=== PATIENT | male | born 1955 | race Caucasian/White ===

== ENCOUNTER 2024-06-20 11:31 | Outpatient (REF) | payer MEDICARE, SELFPAY | END 2024-08-30 16:45 | disposition home or self-care (01) | LOC: ANHLAB 11:31 | PROVIDERS: PCP Internal Medicine; Visit Provider Plastic Surgery | DX: C43.39 Malignant melanoma of other parts of face (principal) | CPT/HCPCS: 88305 ==

== ENCOUNTER → 2025-04-11 16:10 | Outpatient (REF) | payer MEDICARE, SELFPAY ==
--- NOTE | 2025-04-11 16:10 | S_PTH ---
PATIENT: HEBERT TUCKER LOC: [facility] U#:[id number] AGE/SX: 70/M ROOM: RE04/11/[address]: Toni Montalvo MD : 1955 BED: DIS: SPEC #: [id number] RECD: 04/12/25 06:55 STATUS: AYAH REEugene #: [id number] MICHELLE: 04/11/25 16:[address]: Toni Montalvo DEPT: [facility] Surgical RECD BY: Cassy Blue ENTERED: 04/12/25 06:56 SP TYPE: Surgical OTHR DR: Yenifer MichaelMD Tissues: A - Melanoma B - Skin Procedures: Hematoxylin and Eosin Stain Dixon/Jeimy A Gross and Microscopic Level 4 SOX 10
--- OUTSIDE RECORDS SUMMARY | 2025-04-11 16:12 | XMS_ITS | Encounter Summary ---
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) Procedures TEMPUS xM NEXT - Miscellaneous Test Rome Ybarra MD [address] [facility] [address] [place] [address] Phone: tel: fax: Referral ID Status Reason Start Date Expiration Date V isits Requested Visits Authorized [id number] Pending Review 03/29/2025 04/28/2026 1 1 Reason for Visit * Oncology (Routine) - Authorized Specialty Diagnoses / Procedures Referred By Alisia zamora Referred To Contact Oncology Diagnoses Malignant melanoma of neck (HCC) Benjy Barron MD [address] [place] [address] Phone: tel: fax: Rome Ybarra MD [address] [facility] [address] [place] [address] Phone: tel: fax: Referral ID Status Reason Start Date Expiration Date Visits Requested Visits Authorized [id number] Authorized Specialty Services Required 4 02/02/2026 99 99 Encounter Details Date Type Department Care Team (Late st Contact Info) Description 04/10/2025 12:20 PM CDT Office Visit [facility] [address] [facility] [address] [place] [id number] Rome Ybarra MD [address] [facility] [address] [place] [address] 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 Never 12/01/2024 Q2: How many drinks containi ng alcohol do you have on a typical day when you are drinking? Patient does not drink Q3: How often do you have si x or more drinks on one occasion? Never 12/01/2024 Personal Safety Answer Date Recorded Have you ever been in or are you currently in a harmful physical or emotional relationship or is someone making you feel afraid or unsafe? 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 Gender Identity Not on file Sexual Orientation Not on file documented as of this encounter Last Filed Vital Signs Vital Sign Reading Time Taken Comments Blood Pressure 123/71 04/10/2025 12:11 PM CDT Pulse 110 04/10/2025 12:11 PM CDT Temperature 36.2 C (97.2 F) 04/10/2025 12:11 PM CDT Respiratory Rate 18 04/10/2025 12:11 PM CDT Oxygen Saturation 97% 04/10/2025 12:11 PM CDT Inhaled Oxygen Concentration - - Weight 120.7 kg (266 lb) 04/10/2025 12:11 PM CDT Height - - Body Mass Index 40.45 01/16/2025 8:17 AM CDT documented in this encounter Progress Notes * Garret Barrios RN STAFFING - 04/10/2025 12:20 PM CDT Images from the original note were not included. MEDICAL ONCOLOGY OUTPATIENT ROV NOTE Brandon Robertson : 1955 DATE OF VISIT: 04/10/25 PATIENT NAME: Brandon Robertson DATE OF : 1955 DATE OF SERVICE: 08/01/24 REFERRING PHYSICIAN: DR. Ybarra REFERRING PHYSICIAN: Benjy Barron MD PRIMARY CARE PROVIDER: Russ Patton MD ONCOLOGIC SURGEON: Benjy Barron MD COUNT TEAM MEMBER: RON Quinteros OCCULOPLASTIC SURGEON: Dexter Glaser MD LOCAL PLASTIC SURGEON ([place], [place]): Toni Montalvo MD REASON FOR REFERRAL: Melanoma of the posterior neck AND melanoma of the right inferior forehead DIAGNOSIS / COMPLETION / TREATMENT / CHIEF COMPLAINT: 05/29/24: Biopsy of posterior neck lesion and right inferior forehead lesion; pathology reported [id number] to posterior neck site with positive deep and peripheral margins; pathology reported ulcerated malignant melanoma with Breslow depth of 3.2 mm and mitotic rate of 6/mm2 to the right inferior forehead site. 06/20/24: In-office resection of right inferior forehead melanoma; pathology reported residual melanoma with Breslow depth of 0.9 mm and positive margins (lentigo maligna, +ulceration, Ronnie Level II, 1 mitosis/mm2, -microsatellites, non-brisk lymphocytes, -tumor regression, +margins [peripheral margin positive, deep margin negative]). 07/29/24: PET reported mild to moderately hypermetabolic right preauricular nodule measuring 5 mm may represent a genevieve metastasis. Recommend correlation with tissue sampling; reported bilateral sub-6 mm pulmonary nodules below the resolution of PET are indeterminate, although melanoma metastasis is felt less likely given the lack of any FDG uptake in the 5 mm nodule. Recommend continued attention on follow-up. CT Head/Neck reported no cervical lymphadenopathy. No definite correlate for the posterior neck reported melanoma; reported skin defect over the right supraorbital forehead with fat stranding in this region may represent post treatment changes. Residual small lesion may appear similar. No underlying osseous erosion. This is best seen in the same day dedicated CT head; reported 1 .8 cm right thyroid nodule. This can be better assessed with dedicated thyroid ultrasound if clinically appropriate. IMMUNOTHERAPY: Pembrolizumab (08/15/24 - Ongoing) HISTORY OF PRESENT ILLNESS: To briefly review, Brandon Robertosn is a 69-year-old male with a recently diagnosed melanoma of the forehead and posterior neck. He underwent a shave biopsy of the right forehead lesion and posterior neck by his local senior data integration developer on May 29, 2024; pathology of the inferior right forehead lesion reported MIS, lentigo melanoma type, with positive deep and peripheral margins. Pathology of the poste rior neck lesion reported an ulcerated melanoma with Breslow depth of 3.2 mm and mitotic rate of 6/mm2. Excision of the right inferior forehead was performed in the office of Dr. Toni Montalvo (plastic surgeon) revealing residual melanoma with Breslow depth of 0.9 mm and positive margins (lentigo maligna, +ulceration, Ronnie Level II, 1 mitosis/mm2, -microsatellites, non-brisk lymphocytes, -tumor regression, +margins). Mr. Carrillo's medical history is significant for CAD, cardiac stent placement x 2, and DM. He presents today for consultation. Denies any history of autoimmune diseases. INTERVAL HISTORY: Returns today for ongoing assessment and treatment. Plan to proceed with immunotherapy today as scheduled.Pembrolizumab (08/15/24 - Ongoing) Denied any issues. PAST MEDICAL HISTORY: Past Medical History: Diagnosis Date Cataract Diabetes mellitus (HCC) Hypertension Skin cancer Sleep apnea 6yrs ago Past Surgical History: Procedure Laterality Date APPENDECTOMY 1970 CARDIAC STENT PLACEMENT X2. 2018, 2019 COLONOSCOPY 05/2024 PAROTIDECTOMY 10/2024 MEDICATIONS: Current Outpatient Medications: aspirin 81 mg enteric coated tablet atorvastatin (LIPITOR) 40 mg tablet bacitracin-polymyxin B (bacitracin zinc-polymyxin B) ointment blood glucose diagnostic (glucose blood) strip cholecalciferol (Vitamin D3) 1,000 unit capsule glipiZIDE XL (GLUCOTROL XL) 5 mg 24 hr tablet ibuprofen 200 mg tab/cap ketorolac (ACULAR) 0.5 % ophthalmic solution lisinopriL (PRINIVIL,ZESTRIL) 20 mg tablet metFORMIN (GLUCOPHAGE) 1,000 mg tablet OneTouch Delica Plus Lancet 30 gauge misc oxyCODONE (ROXICODONE) 5 mg immediate release tablet oxyCODONE (ROXICODONE) 5 mg immediate release tablet No current facility-administered medications for this visit. ALLERGIES: Allergies Allergen Reactions Nitroglycerin Other (See comments) Pass out Blood pressure dropped and stopped breathing Although patient also had received multiple doses of morphine at the time and from recounting of story, unclear if NTG or morphine related ( -B Jade 12/01/2024) SOCIAL HISTORY: Social History Tobacco Use Smoking status: Never Passive exposure: Past Smokeless tobacco: Never Substance and Sexual Activity Drug use: Never Sexual activity: Defer Alcohol Use: Not At Risk (01/09/2025) Received from [facility] AUDIT-C Frequency of Alcohol Consumption: Never Average Number of Drinks: Patient does not drink Frequency of Binge Drinking: Never FAMILY HISTORY: family history is not on file. He was adopted. REVIEW OF SYSTEMS: As per HPI, all other systems reviewed and negative. PHYSICAL EXAMINATION: ECOG Performance Status: 1 Vitals Signs: Vitals BP 123/71 (BP Location: Left arm) Pulse 110 Temp 36.2 ??C (97.2 ??F) (Temporal) Resp 18 Wt 120.7 kg (266 lb) SpO2 97% BMI 40.45 kg/m?? General: Pleasant, interactive, in no acute distress.. HEENT: Anicteric sclera, mucous membranes are moist, no mucositis or thrush. Cardiovascular: Regular rate and rhythm. Pulmonary: Clear to auscultation bilaterally, no wheezing or crackles. Abdomen: Soft, nontender, nondistended. No hepatosplenomegaly. Extremities: Warm, no lower extremity edema bilaterally. Lymphatics: No cervical, supraclavicular or axillary lymphadenopathy bilaterally. Neurologic: Nonfocal, ambulating in the room with good coordination and balance. Skin: 07/07/24 LABORATORY DATA: Lab Results Component Value Date WBC 9.12 04/10/2025 HGB 13.9 04/10/2025 HCT 42.1 04/10/2025 MCV 87.6 04/10/2025 LABPLAT 260 04/10/2025 Chemistry Component Value Date/Time SODIUM 138 04/10/2025 1036 POTASSIUM 4.9 04/10/2025 1036 CHLORIDE 105 04/10/2025 1036 CO2 24 04/10/2025 1036 BUNSER 19 04/10/2025 1036 CREATININE 1.16 04/10/2025 1036 GLUCOSE 217 (H) 04/10/2025 1036 Component Value Date/Time CALCIUM 9.6 04/10/2025 1036 ALKPHOS 104 04/10/2025 1036 AST 20 04/10/2025 1036 ALT 28 04/10/2025 1036 BILITOT 0.7 04/10/2025 1036 RADIOGRAPHIC DATA: PET/CT FDG Skull to Thigh Narrative: EXAMINATION: TUMOR FDG-PET/CT IMAGING DATE OF STUDY: 04/10/2025 SCANNER: [employer] Verid (SQ1). This is a high-resolution scanner, which can result in higher SUVs (and even detection of previously unrecognized small lesions) compared to older scanners. RADIOPHARMACEUTICAL: 10.05 mCi F-18 Fluorodeoxyglucose (FDG) i.v. Injection site: Right antecubital HISTORY: 70-year-old male with melanoma of the posterior neck and right inferior for head, pathology reported as ulcerated malignant melanoma, underwent resection. Also noted to have involvement of the right parotid, undergoing parotidectomy in 2024 and eyebrow reconstruction. Currently on Pembrolizumab. The study is requested for treatment monitoring during therapy. Subsequent treatment strategy. TECHNIQUE: The patient's fasting blood glucose level, measured by glucometer before injection of FDG, was 192 mg/dL. After intravenous administration of FDG, noncontrast CT images were obtained for attenuation correction and for fusion with emission PET images to allow for anatomical localization of PET findings. Emission PET images were then obtained. The study was interpreted on the [employer] workstation. The mean liver SUV (reported for compliance quality performance analyst purposes) is 3.7. The total scanned area was skull vertex to knees. Images of the body were obtained starting 51 minutes after injection of tracer. All reported SUVs are maximum SUVs, unless otherwise specified. COMPARISON: 01/13/2025 PET/CT DESCRIPTORS OF LESION FDG AVIDITY: Minimal: <= blood pool Mild: > blood pool and <= liver Moderate: > liver and <= 2x SUVmax liver Moderate to marked: >2x SUVmax liver and <= 3x SUVmax liver Marked: > 3x SUVmax liver FINDINGS: There is increased FDG uptake in the posterior auricular soft tissue with SUV of 3.8, which is unchanged in uptake compared to the prior exam (image 63). There is overall decreased FDG uptake in the previously described cervical lymphadenopathy, for reference left level 2 lymph node has a measures 1 cm in the short axis has a maximum SUV of 3.3 compared to the prior exam with a maximum SUV of 5 and likely represents reactive change (Image 90). FDG avid left adrenal lesion is overall unchanged in size and FDG avidity and is favored to represent a myelolipoma. FDG uptake in the right lower abdominal wall soft tissue is likely reactive (image 219). The most FDG-avid lesion is the right posterior auricular soft tissue, has a maximum SUV of 3.8, and approximate axial dimensions of 1.8 x [address] findings: Bilateral lens replacement. Posterior surgical changes of right parotidectomy. Bibasilar atelectasis. Coronary artery and aortic calcifications. Old granulomatous disease. Bilateral gynecomastia. Dense exophytic lesion arising from the left kidney does not have FDG uptake and likely represents a hemorrhagic cyst. Left renal cyst. Left adrenal lesion likely represents myelolipoma. Ventral hernia containing a loop of bowel without evidence of obstruction. Left posterior chest wall subcutaneous nodule without FDG uptake, overall unchanged. Multilevel degenerative disc disease. Diffuse idiopathic skeletal hyperostosis. Chronic left rib fractures, unchanged. Fat containing inguinal hernia. Impression: 1. No evidence of hypermetabolic residual or recurrent disease. 2. Redemonstration of post-surgical changes of right parotidectomy, right eyebrow reconstruction, left posterior neck and right posterior back excision with postsurgical inflammatory uptake. Dictated by: Marcos Guerin M.D. ([place]) The radiology attending physician has personally reviewed this study, and had reviewed and/or edited this written report and agrees with it. Electronically signed by: Michael Clay MD, Ph.D I have personally reviewed all imaging reports as detailed in ONCOLOGIC HISTORY section above. PATHOLOGIC DATA: I have personally reviewed all pathology reports as detailed in ONCOLOGIC HISTORY section above. ASSESSMENT AND PLAN: 70 yo male with T1b right eyebrow and T3b posterior neck melanoma, PET CT shows 5 mm right preauricular lesion. Pembrolizumab (08/15/24 - Ongoing) Reviewed recent PET imaging with the patient today in detail. Plan: US guided bx of right preauricular lesion positive Tempus xM today and next visit Plan to restage again every [address] Barron and Henny Follows with Derm in [place], [place] Pembrolizumab (Cycle 12) today RTC in 3 weeks for treatment and 6 weeks with visit All questions were answered to the patient's apparent satisfaction. Our contact information was provided, and the patient was instructed to contact us with any further questions or concerns. Thank you for allowing us to participate in the care of this patient. Sidney PARDO-Landon Nurse Practitioner Medical Oncology Cylindrical Mixer completed by using [employer] Direct speaking software, therefore, transcriptionvariances may occur. 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) Expected: 05/01/2025, Expires: 05/01/2026 Comprehensive metabolic panel Lab STAT 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) Expected: 05/01/2025, Expires: 05/01/2026 TEMPUS xM NEXT - Miscellaneous Test Lab Routine 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) Expected: 05/01/2025, Expires: 05/01/2026 Thyroid Function [place] Lab Routine 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) Expected: 05/22/2025, Expires: 05/22/2026 Lactate dehydrogenase (LD) Lab Routine 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) Expected: 05/22/2025, Expires: 05/22/2026 CBC with auto differential Lab Routine 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) Expected: 05/22/2025, Expires: 05/22/2026 Comprehensive metabolic panel Lab STAT 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) Expected: 05/22/2025, Expires: 05/22/2026 documented as of this encounter Visit Diagnoses Diagnosis 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)- Primary Malignant melanoma of skin of other and unspecified parts of face Malignant melanoma of neck (HCC) documented in this encounter Orders Appointment Requests Count Last Ordered Date Fi rst Ordered Date [facility] CLINIC APPOINTMENT REQUEST 2 025 [facility] LAB APPOINTMENT 2 04/10/202503/29 [facility] RETURN CHEMO 1.5HRS 2 04/10/2025 0 03/29/2025 documented in this encounter Care Teams Edi Coordinator Relationship Specialty Start Date End Date Russ Patton MD [address] [place] [id number] PCP - General Internal Medicine 12/20/21 Toni Montalvo MD [address] [facility] [address] [facility] [address] [place] [address] Referring Physician Plastic Surgery 06/21/24 Benjy Barron MD [address] [facility] DEPT OTOLARYNGOLOGY, [facility] [address] [place] [address] Referring Physician Otolaryngology 07/07/24 Rome Ybarra MD [address] [facility] DIV IM MEDICAL ONCOLOGY, [facility] [address] [place] [address] Medical Oncologist/Metropolitan Editor Medical Oncology 07/07/24 Jasmin Hernandez PA [address] [address] Physician Credentialing Specialist Physician Credentialing Specialist 07/11/24 documented as of this encounter
--- OUTSIDE RECORDS SUMMARY | 2025-04-11 16:12 | XMS_ITS ---
Author Organization [facility] A Address [address] [place] [address] Care Team Providers Care Principal Research Economist Name Role Phone Russ Patton MD Primary Care Provider + Toni Montalvo MD Unavailable [phone] Benjy Barron MD Unavailable + Rome Ybarra MD Unavailable [phone] Jasmin Hernandez Unavailable Active Problems Problem Noted Date Diagnosed Date 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 12/22/2024 Melanoma of head 10/28/2024 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 At risk of melanoma due to finding dysplastic ne vus 10/13/2024 Malignant melanoma of neck 08/01/2024 Malignant melanoma of skin of eyebrow 08/01/2024 Coronary artery disease invo lving deering coronary artery of deering heart without angina pectoris 03/17/2022 Essential hypertension 03/17/2022 Mixed hyperlipidemia 03/17/2022 Current Treatment and Therapy Plans Pembrolizumab 21 Day Cycles* Plan Start Date:08/07/2024 Plan Provider:Rome Ybarra MD Linked Problems Malignant melanoma of neck ( HCC)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 Lifetime Dose Tracking * Chemical Lifetime Dose Automatic Entry Manual Entr y DLP 1,329 mGycm 1,329 mGycm 0 mGycm
--- OUTSIDE RECORDS SUMMARY | 2025-04-11 16:12 | XMS_ITS | Encounter Summary ---
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) Rome Ybarra MD [address] [facility] [address] [place] [address] Phone: tel: fax: [facility] - Infusion [address] [place] [address] Referral ID Status Reason Start Date Expiration Date V isits Requested Visits Authorized [id number] Authorized 08/01/2024 08/01/2025 99 99 Encounter Details Date Type Department Care Team (Late st Contact Info) Description 04/10/2025 1:30 PM CDT Infusion [facility] [address] [facility] [address] [place] [address] 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 male who presents for treatment cycle 12, day 1 of pembrolizumab Pre-treatment Nursing Assessment Nursing Assessment LOC: Alert, Awake Constitutional: Fatigue Fatigue: Occassional Any falls since your last visit?: No Orientation: Oriented x4 Behavior: Calm Speech: Clear Language: No aphasia Vision: At baseline Peripheral Neuropathy: No Oral Mucosa Grade: Normal (0) Pt states has potential to be ?: N/A Shortness of Breath?: No Appetite: Good Have You Recently Lost Weight Without Trying?: No How Much Weight Have You Lost?: 2 - 13 lb Have you been eating poorly because of a decreased appetite?: No Malnutrition Screening Tool (MST) Score: 1 Abdomen: Soft Diarrhea: No Constipation: No Skin Condition/Temp: Warm, Dry Swelling: No Additional Notes: Encounter Vitals BP: 123/71 (04/10/2025 12:11 PM) Pulse: 110 (04/10/2025 12:11 PM) Resp: 18 (04/10/2025 12:11 PM) Temp: 36.2 ??C (97.2 ??F) (04/10/2025 12:11 PM) Temp src: Temporal (04/10/2025 12:11 PM) SpO2: 97 % (04/10/2025 12:11 PM) Weight: 120.7 kg (266 lb) (04/10/2025 12:11 PM) Pain Score: 0 - No pain Treatment Patient: met treatment parameters Pre blood return: Tami Robertson tolerated treatment well. Patient was frequently observed and monitored throughout the administration of their treatment. Additional Notes: Post blood return: Brisk IV access post infusion: NS Patient Education Treatment Education: Information/teaching given to patient including fall prevention, adverse reaction, symptom management, and process and procedure related to today's visit Response: Verbalizes understanding Discharge Plan Discharge instructions given to patient. Future appointments given and reviewed with treatment plan. 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 Malignant melanoma of skin of other and unspecified parts of face Malignant melanoma of neck (HCC) documented in this encounter Administered Medications Inactive Administered Medications - up to 3 most recent administrations Medication Order MAR Action Action Date Dose Rate Site pembrolizumab (KEYTRUDA) 200 mg in sodium chloride 0.9% 100 mL 200 mg, intravenous, at 236 mL/hr, Administer over 30 Minutes, Once, On Thu04/10/25 at 1400, For 1 dose, Use 0.2-5 micron filterIndications:Malignant melanoma of neck (HCC),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) New Bag 04/10/2025 2:10 PM CDT 200 mg 236 mL/hr documented in this encounter Orders Medications Ordered That Hammad ht Not Have Been Administered Count Last Ordered Date First Ordered Date pembrolizumab (KEYTRUDA) 200 mg in sodium chloride 0.9% 100 mL 1 04/10/2025 Nursing Count Last Ordered Date First Orde red Date ONCBCN PROVIDER COMMUNICATION 2 1 ONCBCN TREATMENT PARAMETERS 3 1 04/10/2025 Appointment Requests Count Last Ordered Date Fi rst Ordered Date ONCBCN RETURN CHEMO 1.5HRS 1 04/10/2025 documented in this encounter Care Teams Plasma Processor Relationship Specialty Start Date End Date Russ Patton MD [address] [place] [address] PCP - General Internal Medicine 12/20/21 Toni Montalvo MD [address] [place] [address] Referring Physician Plastic Surgery 06/21/24 Benjy Barron MD [address] [facility] DEPT OTOLARYNGOLOGY, [facility] [address] [place] [address] Referring Physician Otolaryngology 07/07/24 Rome Ybarra MD [address] [facility] DIV IM MEDICAL ONCOLOGY, [facility] [address], [address], [address] [place] [address] Medical Oncologist/Vice President Payer Medical Oncology 07/07/24 Jasmin Hernandez PA [address] [place] [address] Physician Spring Crater Physician [place] 07/11/24 documented as of this encounter
--- OUTSIDE RECORDS SUMMARY | 2025-04-11 16:13 | XMS_ITS | Encounter Summary ---
Author Organization [facility] Address [address] [place] [address] Phone Care Team Providers Care Hide And Skin Processing Worker Name Role Phone Russ Patton MD Primary Care Provider [phone] Yanni Torres MD Unavailable [phone] Cici Fry APRN, CNP Unavailable Rome Ybarra MD Unavailable [phone] Reason for Visit * Reason Comments Medication Refill Encounter Details Date Type Department Care Team (Late st Contact Info) Description [facility]/28[facility] [address] [place] [address] Russ Patton MD [address] [place] [address] Medication Refill Social History Tobacco Use Types Packs/Day Years Used Date Smoking Tobacco: Never Smokeless Tobacco: Never Alcohol Use Standard Drinks/Week Comments No 0 (1 standard drink = 0.6 oz pur e alcohol) PHQ-2 Answer Date Recorded PHQ-2 Score 0 05/25/2019 Sexually Active Control Partners Comments Not Currently Sex and Gender Information Value Date Recorded Sex Assigned at Not on file Legal Sex Male 9:59 PM CDT Gender Identity Not on file Sexual Orientation Not on file Occupation Industry Job Start Date Job End Date retired Not on file Not on file Not on file documented as of this encounter Miscellaneous Notes * Telephone Encounter - Hensley, Mihaela D, ERP CONSULTANT - 07/30/2020 12:10 PM BI ANALYST Rerouting ANALYST documented in this encounter Plan of Treatment Upcoming Encounters Date Type Department Care Team (Late st Contact Info) Description 07/12/2025 9:30 AM CDT Office Visit [facility] - [facility] Care - [place] [address] [place] [address] Russ Patton MD [address] [place] [address] 08/02/2025 1:30 PM BI ANALYST Office Visit [facility] - [place] [address] [facility] [address] [place] [address] Cici Fry APRN, RISK DEVELOPER #2 [facility] [address] [place] [address] documented as of this encounter Visit Diagnoses Diagnosis Type 2 diabetes mellitus without complication, without long-term current use of insulin documented in this encounter Additional Health Concerns Infection Onset Date Last Indicated Resolved Time COVID - 19 02/20/2022 02/20/2022 02/21/2022 2:56 AM CDT COVID - 19 03/26/2022 03/26/2022 04/05/2022 12:1 6 AM CDT COVID - 19 Confirmed 03/26/2022 03/26/2022 022 12:16 AM CDT COVID - 19 10/03/2024 10/03/2024 10/03/2024 11:2 7 AM BI ANALYST Respiratory Rule-Out 10/03/2024 10/03/2024 025 11:38 AM BI ANALYST COVID - 19 Confirmed 10/03/2024 10/03/2024 025 12:16 AM BI ANALYST Assessment Noted Time PHQ-9 Depression Total Score: 0 09/23/19 20 2:00 PM BI ANALYST documented as of this encounter Care Teams Hide And Skin Processing Worker Relationship Specialty Start Date End Date Russ Patton MD [address] [place] [address] PCP - General Internal Medicine 06/05/15 Yanni Torres MD 2 [facility] [address] [place] [address] Consulting Physician Cardiovascular Disease - Cardiology 05/04/18 Cici Fry APRN, RISK DEVELOPER #2 [facility] [address] [place] [address] Nurse Practitioner Pulmonary Disease 07/23/22 Rome Ybarra MD [address] [facility] [address] [place] [address] Consulting Physician Oncology 07/11/24 documented as of this encounter
--- OUTSIDE RECORDS SUMMARY | 2025-04-11 16:13 | XMS_ITS | Encounter Summary ---
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) Procedures PET/CT FDG Skull to Thigh Rome Ybarra MD [address] [employer] [facility] [address] [place] [address] Phone: tel: fax: [address] [address] Referral ID Status Reason Start Date Expiration Date Visits Re quested Visits Authorized [id number] Closed 02/08/2025 03/10/2026 2 2 Reason for Visit * MRI/CAT/PET Scan (Routine) - Closed Specialty Diagnoses / Procedures Referred By Contac t Referred To Contact Radiology Diagnoses 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 [address] [facility] [place] [address] Referral ID Status Reason Start Date Expiration Date Visits Re quested Visits Authorized [id number] Closed 02/08/2025 03/10/2026 2 2 Encounter Details Date Type Department Care Team (Latest Contact Info) Description 04/10/2025 7:46 AM CDT - 04/10/2025 11:59 PM CDT Hospital Encounter 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 Gender Identity Not on file Sexual Orientation Not on file documented as of this encounter Medications at Time of Discharge aspirin 81 mg enteric coated tabletIndications: Myocardial Reinfarction Prevention Take 1 tablet (81 mg total) by mouth every morning 11/02/2024 atorvastatin (LIPITOR) 40 mg tabletIndications: hyperlipidemia Take 1 tablet (40 mg total) by mouth every morning bacitracin-polymyx in B (bacitracin zinc-polymyxin B) ointment Apply topically 3 (three) times a day Apply to brow and orthodox incisions 3 times a day 15 g 1 12/01/2024 blood glucose diagnostic (glucose blood) strip by other route daily 03/12/2024 cholecalciferol (Vitamin D3) 1,000 unit capsuleIndications :Vitamin D Deficiency Take 2,000 Int'l Units by mouth every morning glipiZIDE XL (GLUCOTROL XL) 5 mg 24 hr tabletIndications: type 2 diabetes mellitus Take 1 tablet (5 mg total) by mouth 2 (two) times a day 01/08/2024 ibuprofen 200 mg tab/cap Take 2 tablet/capsule (400 mg total) by mouth every 6 (six) hours as needed for pain ketorolac (ACULAR) 0.5 % ophthalmic solutionIndication s: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),Malignant melanoma of neck (HCC) 10/07/2024 lisinopriL (PRINIVIL,ZESTRIL) 20 mg tablet Take 1 tablet by mouth once daily 90 tablet 3 08/03/2024 metFORMIN (GLUCOPHAGE) 1,000 mg tabletIndications: type 2 diabetes mellitus Take 1 tablet (1,000 mg total) by mouth 2 (two) times a day with meals OneTouch Delica Plus Lancet 30 gauge misc 11/26/2024 oxyCODONE (ROXICODONE) 5 mg immediate release tabletIndications: Pain Take 1 tablet (5 mg total) by mouth every 4 (four) hours as needed for pain 15 tablet 10/29/2024 oxyCODONE (ROXICODONE) 5 mg immediate release tabletIndications: Pain Take 1 tablet (5 mg total) by mouth every 6 (six) hours as needed for pain (Pain not controlled with Tylenol) 8 tablet 12/01/2024 documented as of this encounter Discharge Disposition Disposition Code Departure Means Destination Discharge to home or self care documented in this encounter Plan of Treatment Not on file documented as of this encounter Procedures Procedure Name Priority Date/Time Associated Diagnosis Comments PET/CT FDG SKULL TO THIGH Schedule Routine, Read Routine (OP Routine) 04/10/2025 9:57 AM CDT 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 No evidence of hypermetabolic residual or [...] Electronically signed by: Michael Clay MD, Ph.D Narrative 04/10/2025 12:01 PM CDT EXAMINATION: TUMOR FDG-PET/CT IMAGING DATE OF STUDY: 04/10/2025 SCANNER: [employer] (SQ1). This is a high-resolution scanner, which [...] obtained. The study was interpreted on the [employer] workstation. The mean liver SUV (reported for air quality instrument specialist purposes) is 3.7. The total scanned area [...] rib fractures, unchanged. Fat containing inguinal hernia. Procedure Note Michael Del Valle MD PhD - 04/10/2025 EXAMINATION: TUMOR FDG-PET/CT IMAGING DATE OF STUDY: 04/10/2025 SCANNER: [facility] [employer] (SQ1). This is a high-resolution scanner, which [...] obtained. The study was interpreted on the [employer] workstation. The mean liver SUV (reported for air quality instrument specialist purposes) is 3.7. The total scanned area [...] rib fractures, unchanged. Fat containing inguinal hernia. IMPRESSION: 1. 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) Malignant melanoma of skin of other and unspecified parts of face Malignant melanoma of neck (HCC) documented in this encounter Administered Medications Inactive Administered Medications - up to 3 most recent administrations Medication Order MAR Action Action Date Dose Rate Site fludeoxyglucose F-18 (FDG) injection 10 millicurie 10 millicurie, intravenous, Once in imaging, radiopharmaceutical, Starting on Thu04/10/25 at 0811, For 1 dose Given 04/10/2025 8:43 AM CDT 10.05 millicuries documented in this encounter Orders Medications Ordered That Hammad ht Not Have Been Administered Count Last Ordered Date First Ordered Date fludeoxyglucose F-18 (FDG) i njection 10 millicurie 1 04/10/2025 documented in this encounter Care Teams Air Conditioning Unit Tester Relationship Specialty Start Date End Date Russ Patton MD [address] [address] PCP - General Internal Medicine 12/20/21 Toni Montalvo MD [address] [facility] [address] [facility] [place] [address] Referring Physician Plastic Surgery 06/21/24 Benjy Barron MD [address] [facility] DEPT OTOLARYNGOLOGY, [address] [place] [address] Referring Physician Otolaryngology 07/07/24 Rome Ybarra MD [address] [facility], [address] [place] [address] Medical Oncologist/Taxation Agent Medical Oncology 07/07/24 Jasmin Hernandez PA [address] [place] [address] Physician Substitute Teacher Physician Substitute Teacher 07/11/24 documented as of this encounter
--- OUTSIDE RECORDS SUMMARY | 2025-04-11 16:13 | XMS_ITS | Encounter Summary ---
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 - Infusion [address] [facility] [address] [place] [address] Referral ID Status Reason Start Date Expiration Date V isits Requested Visits Authorized [id number] Authorized 08/01/2024 08/01/2025 99 [phone] Encounter Details Date Type Department Care Team (Late st Contact Info) Description 04/10/2025 11:[address] 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) DIFFERENTIAL AUTO Routine 04/10/2025 10: 36 AM CDT 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) THYROID FUNCTION CASCADE Routine 04/10/2025 10:36 AM CDT 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 73 m2 Comment: Interpretive Data Reference Interval Normal >/= 90 mL/min/1.73m2 Mildly decreased* 60 - 89 mL/min/1.73m2 Mildly to moderately decreased 45 - 59 mL/min/1.73m2 Moderately to severely decreased 30 - 44 mL/min/1.73m2 Severely decreased 15 - 29 mL/min/1.73m2 Kidney Failure < 15 mL/min/1.73m2 *Relative to young adult level Estimated glomerular filtration rate is determined by the 2020 CKD-EPI equation recommended by the National Kidney Foundation (A Unifying Approach to GFR Estimation: Recommendations of the NKF-ASK Task Force on Reassessing the Inclusion of Race in Diagnosing Kidney Disease, JASN 2020). The CKD-EPI equation should not be used for patients with unstable renal function and has not been validated in children and those over 70. Current interpretive data was last reviewed 2021. Blood 04/10/2025 10:3 6 AM CDT 04/10/2025 10:48 AM CDT Rome Ybarra MD LAB BLOOD ORDERABLES Final Res ult [facility] [place] [address] * Differential, auto (04/10/2025 10:36 AM CDT) Neutrophil abs 6.49 1.50 - 6.50 K/cumm Comment:Testing performed by : [facility], [address] [place], [place] [phone] Lymphocyte abs 1.60 0.80 - 3.30 K/cumm [facility] Comment:Testing performed by : [facility], [address] [place] [phone] Monocyte abs 0.73 0.20 - 0.80 K/cumm GALINDO [facility] Comment:Testing performed by : [facility], [address] [place] [phone] Eosinophil abs 0.24 0.00 - 0.50 K/cumm [facility] Comment:Testing performed by : [facility], [address] [place] [phone] Basophil abs 0.07 0.00 - 0.10 K/cumm [facility] Comment:Testing performed by : [facility], [address] [place] [phone] Neutrophil pct 71.2 % [facility] Comment: Interpretive Data Percent cell count reference ranges are not reported, since discordance with absolute values may lead to misinterpretation of CBC data. Current Interpretive Data was last revised on 2017. Testing performed by: [facility], [address] [place] [phone] Lymphocyte pct 17.5 % [facility] Comment: Interpretive Data Percent cell count reference ranges are not reported, since discordance with absolute values may lead to misinterpretation of CBC data. Current Interpretive Data was last revised on 2017. Testing performed by: [facility], [address] [place] [phone] Monocyte pct 7.9 % [facility] Comment: Interpretive Data Percent cell count reference ranges are not reported, since discordance with absolute values may lead to misinterpretation of CBC data. Current Interpretive Data was last revised on 2017. Testing performed by: [facility], [address] [place] [phone] Eosinophil pct 2.6 % [facility] Comment: Interpretive Data Percent cell count reference ranges are not reported, since discordance with absolute values may lead to misinterpretation of CBC data. Current Interpretive Data was last revised on 2017. Testing performed by: [facility], [address] [place] [phone] Basophil pct 0.8 % [facility] Comment: Interpretive Data Percent cell count reference ranges are not reported, since discordance with absolute values may lead to misinterpretation of CBC data. Current Interpretive Data was last revised on 2017. Testing performed by: [facility], [address] [place] [phone] Blood 04/10/2025 10:3 6 AM CDT 04/10/2025 10:47 AM CDT Rome Ybarra MD LAB BLOOD ORDERABLES Final Res ult Performing Organization Address [facility] Co de Phone Number [facility] [place] [address] * Thyroid Function Coos (04/10/2025 10:36 AM CDT) Pathologist [facility] TSH 1.10 0.30 - 4.20 mcIUnit/mL Blood 04/10/2025 10:3 6 AM CDT 04/10/2025 10:48 AM CDT Rome Ybarra MD LAB BLOOD ORDERABLES Final Res ult Performing Organization Address [facility] Co de Phone Number [facility] [place] [address] * Lactate dehydrogenase (LD) (04/10/2025 10:36 AM CDT) Pathologist [facility] Lactate dehydrogenase (LDH) 110 100 - 250 Units/L Blood 04/10/2025 10:3 6 AM CDT 04/10/2025 10:48 AM CDT Rome Ybarra MD LAB BLOOD ORDERABLES Final Res ult Performing Organization Address [facility] de Phone Number [facility] [place] [address] * (ABNORMAL) CBC with auto differential (04/10/2025 10:36 AM CDT) Pathologist [facility] WBC 9.12 3.80 - 9.90 K/cumm Comment:Testing performed by : [facility], [address] [place] [phone] Hgb 13.9 13.0 - 17.5 g/dL [facility] Comment:Testing performed by : [facility], [address] [place] [phone] Hct 42.1 38.9 - 50.3 % [facility] Comment:Testing performed by : [facility], [address] [place] [address] Plt 260 150 - 400 K/cumm GALINDO [facility]OTHMAN Comment:Testing performed by : [facility], [address] [place] [address] MPV 8.4 6.8 - 10.4 fL [facility]INDO [facility] Comment:Testing performed by : [facility], [address] [place] [address] RBC 4.81 4.30 - 5.80 M/cumm GALINDO ROTHMAN Comment:Testing performed by : [facility], [address] [place] [address] MCV 87.6 81.3 - 96.4 fL [facility]O [facility] Comment:Testing performed by : [facility], [address] [place] [address] MCH 28.9 27.1 - 33.3 pg [facility]O [facility] Comment:Testing performed by : [facility], [address] [place] [address] MCHC 33.0 32.3 - 35.7 g/dL [facility]ALINDO [facility] Comment:Testing performed by : [facility], [address] [place] [address] RDW CV 16.1(H) 11.1 - 14.9 % [facility]O ROTH[facility] Comment:Testing performed by : [facility], [address] [place] [address] NRBC abs 0.00 0.00 - 0.01 K/cumm GALINDO ROTHMAN Comment:Testing performed by : [facility], [address] [place] [address] Blood 04/10/2025 10:3 6 AM CDT 04/10/2025 10:47 AM CDT us Rome Ybarra MD LAB BLOOD ORDERABLES Final Res ult GALINDO [facility] [place] [address] * (ABNORMAL) Comprehensive metabolic panel (04/10/2025 10:36 AM CDT) Sodium 138 135 - 145 mmol/L Potassium, pl 4.9 3.3 - 4.9 mmol/L [facility] Chloride 105 97 - 110 mmol/L [facility] CO2 24 22 - 32 mmol/L [facility] Anion gap 9 2 - 15 mmol/L [facility] BUN 19 6 - 25 mg/dL [facility] Creatinine 1.16 0.80 - 1.30 mg/dL [facility] Glucose 217(H) 70 - 199 mg/dL [facility] Comment: Interpretive Data Fasting glucose >/= 126 mg/dl is diagnostic for diabetes. Fasting is defined as no caloric intake for at least 8 hours. Fasting glucose between 100 mg/dl to 125 mg/dl is diagnostic of prediabetes. In a patient with classic symptoms of hyperglycemia or hyperglycemic crisis, a random glucose >/= 200 mg/dl is diagnostic for diabetes. In the absence of unequivocal hyperglycemia, results should be confirmed by repeat testing. The classification and Diagnosis of Diabetes Diabetes Care 2021; 46: S19-S40. Current interpretive data was last revised 2022. Calcium 9.6 8.5 - 10.3 mg/dL [facility] Bilirubin, total 0.7 0.1 - 1.2 mg/dL [facility] Protein, pl 7.1 6.5 - 8.5 g/dL [facility] Albumin 4.3 3.5 - 5.0 g/dL [facility] Alk phos 104 40 - 130 Units/L [facility] ALT 28 7 - 55 Units/L [facility] AST 20 10 - 50 Units/L [facility] Blood 04/10/2025 10:3 6 AM CDT 04/10/2025 10:48 AM CDT us Rome Ybarra MD LAB BLOOD ORDERABLES Final Res ult [facility] One 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) Malignant melanoma of skin of other and unspecified parts of face documented in this encounter Orders Appointment Requests Count Last Ordered Date Fi rst Ordered Date ONCBCN LAB APPOINTMENT 1 04/10/2025 documented in this encounter Care Teams Behaviour Support Teacher Relationship Specialty Start Date End Date Russ Patton MD [address] [address] PCP - General Internal Medicine 12/20/21 Toni Montalov MD [address] [facility] [address] [place] [address] Referring Physician Plastic Surgery 06/21/24 Benjy Barron MD [address] [facility] DEPT OTOLARYNGOLOGY, [facility] [address] [place] [address] Referring Physician Otolaryngology 07/07/24 Rome Ybarra MD [address] [facility] DIV IM MEDICAL ONCOLOGY, [facility] [address], [address] [place] [address] Medical Oncologist/Smog Technician Medical Oncology 07/07/24 Jasmin Hernandez PA [address] [place] [address] Physician Machine Bander And Cellophaner Physician [employer] 07/11/24 documented as of this encounter
--- OUTSIDE RECORDS SUMMARY | 2025-04-11 16:13 | XMS_ITS | Encounter Summary ---
Author Organization [facility] Address [address] [place] [address] Phone Care Team Providers Care Systems Software Designer Name Role Phone Russ Patton MD Primary Care Provider [phone] Yanni Torres MD Unavailable Cici Fry APRN, CNP Unavailable Rome Ybarra MD Unavailable [phone] Reason for Visit * Reason Comments Medication Refill Encounter Details Date Type Department Care Team (Late st Contact Info) Description 03/11/2024 Refill [facility] - Family Medicine [facility] [address] [place] [id number] Russ Patton MD [address] [place] [address] Medication Refill Social History Tobacco Use Types Packs/Day Years Used Date Smoking Tobacco: Never Smokeless Tobacco: Never Alcohol Use Standard Drinks/Week Comments No 0 (1 standard drink = 0.6 oz pur e alcohol) PHQ-2 Answer Date Recorded Total Score - Questions 1-9 0 12/20 Education Answer Date Recorded What is the highest level of school you have completed or the highest degree you have received? 11th grade 11/06/2022 Sexually Active Control Partners Comments Not Currently Sex and Gender Information Value Date Recorded Sex Assigned at Not on file Legal Sex Male 9:59 PM CDT Gender Identity Not on file Sexual Orientation Not on file Occupation Industry Job Start Date Job End Date retired Not on file Not on file Not on file documented as of this encounter Plan of Treatment Upcoming Encounters Date Type Department Care Team (Late st Contact Info) Description 07/12/2025 9:30 AM CDT Office Visit [facility] - [facility] - [place] [address] [place] [id number] Russ Patton MD [address] [place] [address] 08/02/2025 1:30 PM CHIMNEY REPAIRER Office Visit [facility] PULMONOLOGY [facility] [address] [facility] [address] [place] [address] Cici Fry APRN, ART LIBRARIAN [address] [facility] [address] [place] [address] documented as of this encounter Visit Diagnoses Diagnosis Type 2 diabetes mellitus without complication, without long-term current use of insulin documented in this encounter Additional Health Concerns Infection Onset Date Last Indicated Resolved Time COVID - 19 10/03/2024 10/03/2024 10/03/2024 11:2 7 AM CHIMNEY REPAIRER Respiratory Rule-Out 10/03/2024 10/03/2024 025 11:38 AM CHIMNEY REPAIRER COVID - 19 Confirmed 10/03/2024 10/03/2024 025 12:16 AM CHIMNEY REPAIRER Assessment Noted Time PHQ-9 Depression Total Score: 0 01/07/20 24 10:24 AM CDT documented as of this encounter Care Teams Systems Software Designer Relationship Specialty Start Date End Date Russ Patton MD [address] [place] [address] PCP - General Internal Medicine 06/05/15 Yanni Torres MD 2 [facility] [address] [place] [address] Consulting Physician Cardiovascular Disease - Cardiology 05/04/18 Cici Fry APRN, MIAH [address] [address] Nurse Practitioner Pulmonary Disease 07/23/22 [place] [address] [place] [address] Consulting Physician Oncology 07/11/24 documented as of this encounter
--- OUTSIDE RECORDS SUMMARY | 2025-04-11 16:13 | XMS_ITS | Referral Summary ---
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); Malignant melanoma of neck (HCC) Discharge Disposition: Discharge to home or self care 03/20/2025 10:15 AM CDT Lab [facility] - Lab Collection [address] Floor 6 [place] [address] Malignant melanoma of neck (HCC); 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) 03/20/2025 12:30 PM CDT Infusion [facility] - Infusion [address] [facility] Floor 6 [place] [address] 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); Malignant melanoma of neck (HCC) 03/20/2025 11:20 AM CDT Office Visit [facility] On[facility] [address] [facility] Floor 6 [place] [address] [place] Ybarra MD Malignant melanoma of neck (HCC) (Primary Dx); 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) 03/13/2025 2:30 PM CDT Office Visit [facility] Ophthalmology [address] [place] [address] Dexter Glaser MD 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) 02/28/2025 Telephone [facility] [address] [facility] [address] [place] [address] Monico Parrish CMA 02/27/2025 10:30 AM CDT Infusion [facility] - Infusion [address] [facility] Floor 6 [place] [address] 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); Malignant melanoma of neck (HCC) 02/27/2025 8:15 AM CDT Lab [facility] - Lab Collection [address] [facility] Floor 6 [place] [address] Malignant melanoma of neck (HCC); 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) 02/27/2025 9:20 AM CDT Office Visit [facility] [address] [place] [address] 6 [place] [address] Rome Ybarra MD 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); Malignant melanoma of neck (HCC) 02/06/2025 9:00 AM CDT Infusion [facility] - Infusion [address] [place] [address] Floor 6 [place] [address] 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); Malignant melanoma of neck (HCC) 02/06/2025 8:00 AM CDT Lab [facility] - Lab Collection [address] [place] [address] 6 [place] [address] Malignant melanoma of neck (HCC); 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) 02/01/2025 Orders Only [facility] [address] [place] [phone] Rome Ybarra MD 01/26/2025 8:20 AM CDT Office Visit [facility] Department of Otolaryngology Head-Neck Division [address] [place] [phone] Benjy Barron MD Malignant melanoma of neck (HCC) (Primary Dx) 01/16/2025 9:00 AM CDT Office Visit [facility] [address] [place] [phone] Rome Ybarra MD 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); Malignant melanoma of neck (HCC) 01/16/2025 10:00 AM CDT Infusion [facility] - Infusion [address] [place] [address] Floor 6 [place] [address] 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); Malignant melanoma of neck (HCC) 01/16/2025 8:00 AM CDT Lab [facility] - Lab Collection [address] [place] [address] Floor 6 [place] [address] Malignant melanoma of neck (HCC); 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) 01/13/2025 9:58 AM CDT - 01/13/2025 11:59 PM CDT Hospital Encounter [facility] - PET [address] [facility] Floor 8 [place] [address] Discharge Disposition: Discharge to home or self care 01/13/2025 9:58 AM CDT - 01/13/2025 11:59 PM CDT Hospital Encounter [facility] - PET [address] [facility] Floor 8 [place] [address] 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); Malignant melanoma of neck (HCC) Discharge Disposition: Discharge to home or self care from Last 3 Months Allergies Active Allergy Reactions Criticality Noted Date Comments Nitroglycerin Other (See comments) High 02/20/2022 Pass out Blood pressure dropped and stopped breathing Although patient also had received multiple doses of morphine at the time and from recounting of story, unclear if NTG or morphine related ( Juan Antonio Jade 12/01/2024) Medications metFORMIN (GLUCOPHAGE) 1,000 mg tabletIndications :type 2 diabetes mellitus Take 1 tablet (1,000 mg total) by mouth 2 (two) times a day with meals Active blood glucose diagnostic (glucose blood) strip by other route daily 4 Active atorvastatin (LIPITOR) 40 mg tabletIndications :hyperlipidemia Take 1 tablet (40 mg total) by mouth every morning Active glipiZIDE XL (GLUCOTROL XL) 5 mg 24 hr tabletIndications :type 2 diabetes mellitus Take 1 tablet (5 mg total) by mouth 2 (two) times a day 4 Active cholecalciferol (Vitamin D3) 1,000 unit capsuleIndication s:Vitamin D Deficiency Take 2,000 Int'l Units by mouth every morning Active lisinopriL (PRINIVIL,ZESTRIL ) 20 mg tablet Take 1 tablet by mouth once daily 90 tablet 3 4 Active ketorolac (ACULAR) 0.5 % ophthalmic solutionIndicatio ns: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),Malignant melanoma of neck (HCC) 5 Active aspirin 81 mg enteric coated tabletIndications :Myocardial Reinfarction Prevention Take 1 tablet (81 mg total) by mouth every morning 5 Active oxyCODONE (ROXICODONE) 5 mg immediate release tabletIndications :Pain Take 1 tablet (5 mg total) by mouth every 4 (four) hours as needed for pain 15 tablet 5 Active ibuprofen 200 mg tab/cap Take 2 tablet/capsule (400 mg total) by mouth every 6 (six) hours as needed for pain Active bacitracin-polymy wero B (bacitracin zinc-polymyxin B) ointment Apply topically 3 (three) times a day Apply to brow and mosque incisions 3 times a day 15 g 1 5 Active oxyCODONE (ROXICODONE) 5 mg immediate release tabletIndications :Pain Take 1 tablet (5 mg total) by mouth every 6 (six) hours as needed for pain (Pain not controlled with Tylenol) 8 tablet 5 Active OneTouch Delica Plus Lancet 30 gauge misc 5 Active Active Problems Problem Noted Date Diagnosed Date 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 12/22/2024 Melanoma of head 10/28/2024 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 At risk of melanoma due to finding dysplastic ne vus 10/13/2024 Malignant melanoma of neck 08/01/2024 Malignant melanoma of skin of eyebrow 08/01/2024 Coronary artery 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 03/17/2022 Essential hypertension 03/17/2022 Mixed hyperlipidemia 03/17/2022 Immunizations Immunization Administration Dates Next Due Hep B Vaccine 06/10/2018 Influenza Virus Vaccine Trivalent Mdv 07/11/2024 Influenza, Quad, Adjuvantate d, Intramuscular 08/03/2023,07/07/2023 Influenza, Quadrivalent, Spl it, Preservative Free, Intramuscular 06/25/2022,07/08/2021,06/18/2020,04/27,07/04/2016 Influenza, Trivalent, High D ose, Split, Preservative Free, Intramuscular 06/25/2019,06/10/2018 Influenza, Trivalent, IM (MDV) 07/05/2015,2013,09/21/2013 Influenza, Trivalent, Preser vative Free, Intramuscular 07/03/2016,06/26/2015 Pneumococcal Conjugate PCV 13 06/10/2018, 018 Pneumococcal Conjugate Pcv20 07/11/2024 Pneumococcal Polysaccharide PPV23 06/25/2019,,09/21/2009 RSV Vaccine, Pref, Recombina nt, Subunit, Adjuvanted, PF, IM (Arexvy) 01/10/2025 Td, adsorbed 09/21/2007 Tdap 01/10/2025,03/07/2022,06/11/2020 ZOSTER LIVE 05/21/2017 ZOSTER Recombinant 01/10/2025,07/11/2024 Social History Tobacco Use Types Packs/Day Years Used Date Smoking Tobacco: Never Passive Smoke Exposure: Past Smokeless Tobacco: Never Tobacco Cessation:Counseling Given: Not Answered AUDIT-C Answer Date Recorded Q1: How often [...] on file Legal Sex Male 7:15 PM [employer] Gender Identity Not on file Sexual Orientation Not on file Last Filed Vital Signs Vital Sign Reading Time Taken Comments Blood Pressure 123/71 04/10/2025 12:11 PM CDT Pulse 110 04/10/2025 12:11 PM CDT Temperature 36.2 C (97.2 F) 04/10/2025 12:11 PM CDT Respiratory Rate 18 04/10/2025 12:11 PM CDT Oxygen Saturation 97% 04/10/2025 12:11 PM CDT Inhaled Oxygen Concentration - - Weight 120.7 kg (266 lb) 04/10/2025 12:11 PM CDT Height 172.7 cm (5' 8) 01/16/2025 8:17 AM CDT Body Mass Index 40.45 01/16/2025 8:17 AM CDT Plan of Treatment Not on file Medical Devices Implanted Type Area Content Coordinator Device Identifier Shelf Expiration Date Model / Serial / Lot Stent-2018 Rca Stent Right: Coronary Artery Stent-2017 Lad Stent Left: Coronary Artery Procedures Procedure Name Priority Date/Time Associated Diagnosis [...] 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) PET/CT FDG SKULL TO THIGH Schedule Routine, Read Routine (OP Routine) 04/10/2025 9:57 AM CDT 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) EGFR STAT 03/20/2025 10:13 AM CDT 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) DIFFERENTIAL AUTO Routine 03/20/2025 10: 13 AM CDT 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) THYROID FUNCTION CASCADE Routine 03/20/2025 10:13 AM CDT 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) LACTATE DEHYDROGENASE Routine 03/20/2025 10:13 AM CDT 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) CBC WITH AUTO DIFFERENTIAL Routine 03/20/2025 10:13 AM CDT 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) COMPREHENSIVE METABOLIC PANEL STAT 03/20/2025 10:13 AM CDT 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) EGFR STAT 02/27/2025 8:17 AM CDT 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) DIFFERENTIAL AUTO Routine 02/27/2025 8:1 7 AM CDT 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) THYROID FUNCTION CASCADE Routine 02/27/2025 8:17 AM CDT 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) LACTATE DEHYDROGENASE Routine 02/27/2025 8:17 AM CDT 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) CBC WITH AUTO DIFFERENTIAL Routine 02/27/2025 8:17 AM CDT 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) COMPREHENSIVE METABOLIC PANEL STAT 02/27/2025 8:17 AM CDT 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) TSH Routine 02/27/2025 8:17 AM CDT 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) EGFR STAT 02/06/2025 8:21 AM CDT 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) DIFFERENTIAL AUTO Routine 02/06/2025 8:2 1 AM CDT 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) THYROID FUNCTION CASCADE Routine 02/06/2025 8:21 AM CDT 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) LACTATE DEHYDROGENASE Routine 02/06/2025 8:21 AM CDT 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) CBC WITH AUTO DIFFERENTIAL Routine 02/06/2025 8:21 AM CDT 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) COMPREHENSIVE METABOLIC PANEL STAT 02/06/2025 8:21 AM CDT 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) EGFR STAT 01/16/2025 8:04 AM CDT 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) DIFFERENTIAL AUTO Routine 01/16/2025 8:0 4 AM CDT 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) THYROID FUNCTION CASCADE Routine 01/16/2025 8:04 AM CDT 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) LACTATE DEHYDROGENASE Routine 01/16/2025 8:04 AM CDT 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) CBC WITH AUTO DIFFERENTIAL Routine 01/16/2025 8:04 AM CDT 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) COMPREHENSIVE METABOLIC PANEL STAT 01/16/2025 8:04 AM CDT 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) PET/CT FDG SKULL TO THIGH Schedule Routine, Read Routine (OP Routine) 01/13/2025 12:46 PM CDT 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) from Last 3 Months Results * eGFR (04/10/2025 10:36 AM CDT) [...] ORDERABLES Final Res ult GALINDO ROTHMAN [facility] [place] [address] * Differential, auto (04/10/2025 10:36 AM CDT) Neutrophil abs 6.49 1.50 - 6.50 K/cumm Comment:Testing performed by : [facility], [address] [place] [phone] Lymphocyte abs 1.60 0.80 - 3.30 K/cumm [facility] Comment:Testing performed by : [facility], [address] [place] [phone] Monocyte abs 0.73 0.20 - 0.80 K/cumm [facility] Comment:Testing performed by : [facility], [address] [place] [address] Eosinophil abs 0.24 0.00 - 0.50 K/cumm [facility] Comment:Testing performed by : [facility], [address] [place], [place] [phone] Basophil abs 0.07 0.00 - 0.10 K/cumm [facility] Comment:Testing performed by : [facility], [address] [place], [place] [phone] Neutrophil pct 71.2 % [facility] Comment: Interpretive Data Percent cell count reference ranges are not reported, since discordance with absolute values may lead to misinterpretation of CBC data. Current Interpretive Data was last revised on 2017. Testing performed by: [facility], [address] [place] [phone] Lymphocyte pct 17.5 % [facility] Comment: Interpretive Data Percent cell count reference ranges are not reported, since discordance with absolute values may lead to misinterpretation of CBC data. Current Interpretive Data was last revised on 2017. Testing performed by: [facility], [address] [place] [phone] Monocyte pct 7.9 % [facility] Comment: Interpretive Data Percent cell count reference ranges are not reported, since discordance with absolute values may lead to misinterpretation of CBC data. Current Interpretive Data was last revised on 2017. Testing performed by: [facility], [address] [place] [phone] Eosinophil pct 2.6 % [facility] Comment: Interpretive Data Percent cell count reference ranges are not reported, since discordance with absolute values may lead to misinterpretation of CBC data. Current Interpretive Data was last revised on 2017. Testing performed by: [facility], [address] [place] [phone] Basophil pct 0.8 % GALINDO ROTHMAN Comment: Interpretive Data Percent cell count reference ranges are not reported, since discordance with absolute values may lead to misinterpretation of CBC data. Current Interpretive Data was last revised on 2017. Testing performed by: [facility], [address] [place] [phone] Blood 04/10/2025 10:3 6 AM CDT 04/10/2025 10:47 AM CDT Rome Ybarra MD LAB BLOOD ORDERABLES Final Res ult Performing Organization Address City/[facility]/ZIP Co de Phone Number [facility] Department [place] [address] * Thyroid Function [place] (04/10/2025 10:36 AM CDT) TSH 1.10 0.30 - 4.20 mcIUnit/mL Blood 04/10/2025 10:3 6 AM CDT 04/10/2025 10:48 AM CDT Rome Ybarra MD LAB BLOOD ORDERABLES Final Res ult Performing Organization Address City/[facility]/ZIP Co de Phone Number [facility] Department [place] [address] * (ABNORMAL) CBC with auto differential (04/10/2025 10:36 AM CDT) WBC 9.12 3.80 - 9.90 K/cumm Comment:Testing performed by : [facility], [address] [place] [phone] Hgb 13.9 13.0 - 17.5 g/dL GALINDO ROTHMAN Comment:Testing performed by : [facility], [address] [place] [address] Hct 42.1 38.9 - 50.3 % [facility] Comment:Testing performed by : [facility], [address] [place], [place] [phone] Plt 260 150 - 400 K/cumm GALINDO ROTHMAN Comment:Testing performed by : [facility], [address] [place] [address] MPV 8.4 6.8 - 10.4 fL GALINDO ROTHMAN Comment:Testing performed by : [facility], [address] [place], [place] [phone] RBC 4.81 4.30 - 5.80 M/cumm GALINDO ROTHMAN Comment:Testing performed by : [facility], [address] [place], [place] [phone] MCV 87.6 81.3 - 96.4 fL GALINDO ROTHMAN Comment:Testing performed by : [facility], [address] [place], [place] [phone] MCH 28.9 27.1 - 33.3 pg GALINDO ROTHMAN Comment:Testing performed by : [facility], [address] [place] [address] MCHC 33.0 32.3 - 35.7 g/dL GALINDO ROTHMAN Comment:Testing performed by : [facility], [address] [place], [place] [phone] RDW CV 16.1(H) 11.1 - 14.9 % GALINDO ROTHMAN Comment:Testing performed by : [facility], [address] [place] [address] NRBC abs 0.00 0.00 - 0.01 K/cumm GALINDO ROTHMAN Comment:Testing performed by : [facility], [address] [place] [address] Blood 04/10/2025 10:3 6 AM CDT 04/10/2025 10:47 AM CDT us Rome Ybarra MD LAB BLOOD ORDERABLES Final Res ult GALINDO ROTHMAN [facility] Department [place] [address] * Lactate dehydrogenase (LD) (04/10/2025 10:36 AM CDT) Pathologist [facility] Lactate dehydrogenase (LDH) 110 100 - 250 Units/L Blood 04/10/2025 10:3 6 AM CDT 04/10/2025 10:48 AM CDT Rome Ybarra MD LAB BLOOD ORDERABLES Final Res ult G[facility]INDO [facility] Department [place] [address] * (ABNORMAL) Comprehensive metabolic panel (04/10/2025 10:36 AM CDT) Pathologist [facility] Sodium 138 135 - 145 mmol/L Potassium, pl 4.9 3.3 - 4.9 mmol/L [facility] Chloride 105 97 - 110 mmol/L [facility] CO2 24 22 - 32 mmol/L [facility] Anion gap 9 2 - 15 mmol/L [facility] BUN 19 6 - 25 mg/dL [facility] Creatinine 1.16 0.80 - 1.30 mg/dL [facility] Glucose 217(H) 70 - 199 mg/dL [facility] Comment: Interpretive Data Fasting glucose >/= 126 [...] classification and Diagnosis of Diabetes Diabetes Care 202; 46: S19-S40. Current interpretive data was last revised 2022. Calcium 9.6 8.5 - 10.3 mg/dL [facility] Bilirubin, total 0.7 0.1 - 1.2 mg/dL [facility] Protein, pl 7.1 6.5 - 8.5 g/dL [facility] Albumin 4.3 3.5 - 5.0 g/dL [facility] Alk phos 104 40 - 130 Units/L [facility] ALT 28 7 - 55 Units/L [facility] AST 20 10 - 50 Units/L [facility] Blood 04/10/2025 10:3 6 AM CDT 04/10/2025 10:48 AM CDT Rome Ybarra MD LAB BLOOD ORDERABLES Final Res ult G[facility]INDO [facility] Department [place] [address] * PET/CT FDG Skull to Thigh (04/10/2025 [...] FDG-PET/CT IMAGING DATE OF STUDY: 04/10/2025 SCANNER: [facility] [employer] (SQ1). This is a high-resolution scanner, which [...] obtained. The study was interpreted on the [employer] workstation. The mean liver SUV (reported for training and quality manager purposes) is 3.7. The total scanned area [...] FDG-PET/CT IMAGING DATE OF STUDY: 04/10/2025 SCANNER: [facility] [employer] (SQ1). This is a high-resolution scanner, which [...] obtained. The study was interpreted on the [employer] workstation. The mean liver SUV (reported for training and quality manager purposes) is 3.7. The total scanned area [...] Michael Clay MD, Ph.D [place] Ybarra MD [facility] PET PROCEDURES Final Resul t * eGFR (03/20/2025 10:13 AM CDT) eGFR 69 >=60 mL/min/1. 73 m2 Comment: Interpretive Data [...] of Race in Diagnosing Kidney Disease, JASN 202). The CKD-EPI equation should not be used for patients with unstable renal function and has not been validated in children and those over 70. Current interpretive data was last reviewed 2021. Blood 03/20/2025 10:1 3 AM CDT 03/20/2025 10:19 AM CDT us Roem Ybarra MD LAB BLOOD ORDERABLES Final Res ult GALINDO ROTHMAN [facility] Department [place] [address] * (ABNORMAL) Differential, auto (03/20/2025 10:13 AM CDT) Neutrophil abs 5.68 1.50 - 6.50 K/cumm Comment:Testing performed by : [facility], [address] [place] [phone] Lymphocyte abs 1.74 0.80 - 3.30 K/cumm GALINDO ROTHMAN Comment:Testing performed by : [facility], [address] [place] [phone] Monocyte abs 0.58 0.20 - 0.80 K/cumm GALINDO ROTHMAN Comment:Testing performed by : [facility], [address] [place] [phone] Eosinophil abs 0.27 0.00 - 0.50 K/cumm GALINDO ROTHMAN Comment:Testing performed by : [facility], [address] [place] [phone] Basophil abs 0.11(H) 0.00 - 0.10 K/cumm CERDUGLAS ROTHMAN Comment:Testing performed by : [facility], [address] [place] [phone] Neutrophil pct 67.9 % GALINDO ROTHMAN Comment: Interpretive Data Percent cell count reference ranges are not reported, since discordance with absolute values may lead to misinterpretation of CBC data. Current Interpretive Data was last revised on 2017. Testing performed by: [facility], [address] [place] [phone] Lymphocyte pct 20.8 % CERDUGLAS ROTHMAN Comment: Interpretive Data Percent cell count reference ranges are not reported, since discordance with absolute values may lead to misinterpretation of CBC data. Current Interpretive Data was last revised on 2017. Testing performed by: [facility], [address] [place] [phone] Monocyte pct 6.9 % GALINDO ROTHMAN Comment: Interpretive Data Percent cell count reference ranges are not reported, since discordance with absolute values may lead to misinterpretation of CBC data. Current Interpretive Data was last revised on 2017. Testing performed by: [facility], [address] [place], [place] [id number] Eosinophil pct 3.2 % GALINDO ROTHMAN Comment: Interpretive Data Percent cell count reference ranges are not reported, since discordance with absolute values may lead to misinterpretation of CBC data. Current Interpretive Data was last revised on 2017. Testing performed by: [facility], [address] [place] [phone] Basophil pct 1.3 % CERDUGLAS ROTHMAN Comment: Interpretive Data Percent cell count reference ranges are not reported, since discordance with absolute values may lead to misinterpretation of CBC data. Current Interpretive Data was last revised on 2017. Testing performed by: [facility], [address] [place] [phone] Blood 03/20/2025 10:1 3 AM CDT 03/20/2025 10:18 AM CDT Rome Ybarra MD LAB BLOOD ORDERABLES Final Res ult GALINDO ROTHMAN [facility] Department [place] [address] * Thyroid Function Thurston (03/20/2025 10:13 AM CDT) TSH 1.19 0.30 - 4.20 mcIUnit/mL Blood 03/20/2025 10:1 3 AM CDT 03/20/2025 10:19 AM CDT Rome Ybarra MD LAB BLOOD ORDERABLES Final Res ult GALINDO ROTHMAN [facility] Department [place] [address] * (ABNORMAL) CBC with auto differential (03/20/2025 10:13 AM CDT) Pathologist [facility] WBC 8.36 3.80 - 9.90 K/cumm Comment:Testing performed by : [facility], [address] [place] [address] Hgb 13.9 13.0 - 17.5 g/dL CERDUGLAS ROTHMAN Comment:Testing performed by : [facility], [address] [place] [address] Hct 41.4 38.9 - 50.3 % CERDUGLAS BJ Comment:Testing performed by : [facility], [address] [place] [address] Plt 270 150 - 400 K/cumm CERDUGLAS BJ Comment:Testing performed by : [facility], [address] [place] [address] MPV 8.1 6.8 - 10.4 fL CERDUGLAS BJ Comment:Testing performed by : [facility], [address] [place] [address] RBC 4.71 4.30 - 5.80 M/cumm CERDUGLAS BJ Comment:Testing performed by : [facility], [address] [place] [address] MCV 87.8 81.3 - 96.4 fL CERDUGLAS BJ Comment:Testing performed by : [facility], [address] [place] [address] MCH 29.4 27.1 - 33.3 pg CERDUGLAS BJ Comment:Testing performed by : [facility], [address] [place] [phone] MCHC 33.5 32.3 - 35.7 g/dL GALINDO ROTHMAN Comment:Testing performed by : [facility], [address] [place], [place] [phone] RDW CV 16.6(H) 11.1 - 14.9 % GALINDO ROTHMAN Comment:Testing performed by : [facility], [address] [place] [phone] NRBC abs 0.00 0.00 - 0.01 K/cumm GALINDO ROTHMAN Comment:Testing performed by : [facility], [address] [place] [phone] Blood 03/20/2025 10:1 3 AM CDT 03/20/2025 10:18 AM CDT Rome Ybarra MD LAB BLOOD ORDERABLES Final Res ult Performing Organization Address City/[facility]/ZIP Co de Phone Number [facility] [place] [address] * Lactate dehydrogenase (LD) (03/20/2025 10:13 AM CDT) Pathologist [facility] Lactate dehydrogenase (LDH) 114 100 - 250 Units/L Blood 03/20/2025 10:1 3 AM CDT 03/20/2025 10:19 AM CDT Rome Ybarra MD LAB BLOOD ORDERABLES Final Res ult [facility] [place] [address] * (ABNORMAL) Comprehensive metabolic panel (03/20/2025 10:13 AM CDT) Sodium 140 135 - 145 mmol/L Potassium, pl 4.5 3.3 - 4.9 mmol/L [facility] Chloride 107 97 - 110 mmol/L [facility] CO2 21(L) 22 - 32 mmol/L [facility] Anion gap 12 2 - 15 mmol/L [facility] BUN 20 6 - 25 mg/dL [facility] Creatinine 1.14 0.80 - 1.30 mg/dL [facility] Glucose 192 70 - 199 mg/dL [facility] Comment: Interpretive Data Fasting glucose >/= 126 [...] 2022. Calcium 9.6 8.5 - 10.3 mg/dL [facility] Bilirubin, total 0.5 0.1 - 1.2 mg/dL [facility] Protein, pl 6.9 6.5 - 8.5 g/dL [facility] Albumin 4.2 3.5 - 5.0 g/dL [facility] Alk phos 103 40 - 130 Units/L [facility] ALT 19 7 - 55 Units/L [facility] AST 20 10 - 50 Units/L [facility] Blood 03/20/2025 10:1 3 AM CDT 03/20/2025 10:19 AM CDT Rome Ybarra MD LAB BLOOD ORDERABLES Final Res ult [facility] [place] [address] * (ABNORMAL) eGFR (02/27/2025 8:17 AM CDT) eGFR 59(L) >=60 mL/min/1. 73 m2 Comment: Interpretive Data [...] interpretive data was last reviewed 2021. Blood 02/27/2025 8:17 AM CDT 02/27/2025 8:28 AM CDT us Rome Ybarra MD LAB BLOOD ORDERABLES Final Res ult [facility] Department [place] [address] * Differential, auto (02/27/2025 8:17 AM CDT) Neutrophil abs 4.90 1.50 - 6.50 K/cumm Comment:Testing performed by : [facility], [address] [place] [address] Lymphocyte abs 1.91 0.80 - 3.30 K/cumm GALINDO ROTHMAN Comment:Testing performed by : [facility], [address] [place] [address] Monocyte abs 0.68 0.20 - 0.80 K/cumm GALINDO ROTHMAN Comment:Testing performed by : [facility], [address] [place] [phone] Eosinophil abs 0.33 0.00 - 0.50 K/cumm GALINDO ROTHMAN Comment:Testing performed by : [facility], [address] [place] [phone] Basophil abs 0.09 0.00 - 0.10 K/cumm GALINDO BJ Comment:Testing performed by : [facility], [address] [place] [phone] Neutrophil pct 62.0 % CERNER BJ Comment: Interpretive Data Percent cell count reference ranges are not reported, since discordance with absolute values may lead to misinterpretation of CBC data. Current Interpretive Data was last revised on 2017. Testing performed by: [facility], [address] [place] [phone] Lymphocyte pct 24.2 % CERNER BJ Comment: Interpretive Data Percent cell count reference ranges are not reported, since discordance with absolute values may lead to misinterpretation of CBC data. Current Interpretive Data was last revised on 2017. Testing performed by: [facility], [address] [place] [phone] Monocyte pct 8.5 % CERDUGLAS ROTHMAN Comment: Interpretive Data Percent cell count reference ranges are not reported, since discordance with absolute values may lead to misinterpretation of CBC data. Current Interpretive Data was last revised on 2017. Testing performed by: [facility], [address] [place] [phone] Eosinophil pct 4.2 % CERDUGLAS BJ Comment: Interpretive Data Percent cell count reference ranges are not reported, since discordance with absolute values may lead to misinterpretation of CBC data. Current Interpretive Data was last revised on 2017. Testing performed by: [facility], [address] [place] [phone] Basophil pct 1.1 % CERNER BJ Comment: Interpretive Data Percent cell count reference ranges are not reported, since discordance with absolute values may lead to misinterpretation of CBC data. Current Interpretive Data was last revised on 2017. Testing performed by: [facility], [address] [place] [phone] Blood 02/27/2025 8:17 AM CDT 02/27/2025 8:21 AM CDT Rome Ybarra MD LAB BLOOD ORDERABLES Final Res ult GALINDO ROTHMAN [facility] Department [place] [address] * Thyroid Function Thurston (02/27/2025 8:17 AM CDT) Pathologist [facility] TSH 1.57 0.30 - 4.20 mcIUnit/mL Blood 02/27/2025 8:17 AM CDT 02/27/2025 8:28 AM CDT Rome Ybarra MD LAB BLOOD ORDERABLES Final Res ult Performing Organization Address City/[facility]/ZIP Co de Phone Number [facility] Department [place] [address] * (ABNORMAL) CBC with auto differential (02/27/2025 8:17 AM CDT) Pathologist [facility] WBC 7.90 3.80 - 9.90 K/cumm Comment:Testing performed by : [facility], [address] [place] [address] Hgb 13.6 13.0 - 17.5 g/dL [facility] Comment:Testing performed by : [facility], [address] [place] [address] Hct 40.4 38.9 - 50.3 % [facility] Comment:Testing performed by : [facility], [address] [place] [address] Plt 259 150 - 400 K/cumm [facility] Comment:Testing performed by : [facility], [address] [place] [address] MPV 8.4 6.8 - 10.4 fL CERDUGLAS BJ Comment:Testing performed by : [facility], [address] [place] [address] RBC 4.65 4.30 - 5.80 M/cumm GALINDO BJ Comment:Testing performed by : [facility], [address] [place] [address] MCV 86.9 81.3 - 96.4 fL [facility] Comment:Testing performed by : [facility], [address] [place] [address] MCH 29.2 27.1 - 33.3 pg GALINDO ROTHMAN Comment:Testing performed by : [facility], [address] [place] [address] MCHC 33.6 32.3 - 35.7 g/dL [facility] Comment:Testing performed by : [facility], [address] [place] [address] RDW CV 17.0(H) 11.1 - 14.9 % [facility] Comment:Testing performed by : [facility], [address] [place] [address] NRBC abs 0.00 0.00 - 0.01 K/cumm [facility] Comment:Testing performed by : [facility], [address] [place] [address] Blood 02/27/2025 8:17 AM CDT 02/27/2025 8:21 AM CDT Rome Ybarra MD LAB BLOOD ORDERABLES Final Res ult Performing Organization Address City/[facility]/ZIP Co de Phone Number [facility] [place] [address] * TSH (02/27/2025 8:17 AM CDT) Thyroid Stimulating Hormone See Comment 0.30 - 4.20 mcIUnit/m L Comment:Credited, duplicate test. Blood 02/27/2025 8:17 AM CDT 02/27/2025 8:28 AM CDT Rome Ybarra MD LAB BLOOD ORDERABLES Final Res ult [facility] [place] [address] * Lactate dehydrogenase (LD) (02/27/2025 8:17 AM CDT) Lactate dehydrogenase (LDH) 142 100 - 250 Units/L Blood 02/27/2025 8:17 AM CDT 02/27/2025 8:28 AM CDT Rome Ybarra MD LAB BLOOD ORDERABLES Final Res ult [facility] Department [place] [address] * (ABNORMAL) Comprehensive metabolic panel (02/27/2025 8:17 AM CDT) Pathologist [facility] Sodium 140 135 - 145 mmol/L Potassium, pl 4.4 3.3 - 4.9 mmol/L [facility] Chloride 107 97 - 110 mmol/L [facility] CO2 22 22 - 32 mmol/L [facility] Anion gap 11 2 - 15 mmol/L [facility] BUN 24 6 - 25 mg/dL [facility] Creatinine 1.30 0.80 - 1.30 mg/dL [facility] Glucose 210(H) 70 - 199 mg/dL [facility] Comment: Interpretive Data Fasting glucose >/= 126 [...] interpretive data was last revised 2022. Calcium 9.5 8.5 - 10.3 mg/dL [facility] Bilirubin, total 0.4 0.1 - 1.2 mg/dL [facility] Protein, pl 6.9 6.5 - 8.5 g/dL [facility] Albumin 4.2 3.5 - 5.0 g/dL [facility] Alk phos 105 40 - 130 Units/L [facility] ALT 23 7 - 55 Units/L [facility] AST 17 10 - 50 Units/L [facility] Blood 02/27/2025 8:17 AM CDT 02/27/2025 8:28 AM CDT Rome Ybarra MD LAB BLOOD ORDERABLES Final Res ult Performing Organization Address City/[facility]/ZIP Co de Phone Number [facility] Department [place] [address] * eGFR (02/06/2025 8:21 AM CDT) Pathologist [facility] eGFR 67 >=60 mL/min/1. 73 m2 Comment: [...] interpretive data was last reviewed 2021. Blood 02/06/2025 8:21 AM CDT 02/06/2025 8:27 AM CDT Rome Ybarra MD LAB BLOOD ORDERABLES Final Res ult [facility] Department [place] [address] * Differential, auto (02/06/2025 8:21 AM CDT) Pathologist [facility] Neutrophil abs 4.08 1.50 - 6.50 K/cumm Comment:Testing performed by : [facility], [address] [place], [place] [phone] Lymphocyte abs 1.88 0.80 - 3.30 K/cumm [facility]ER [facility] Comment:Testing performed by : [facility], [address] [place] [phone] Monocyte abs 0.58 0.20 - 0.80 K/cumm [facility] Comment:Testing performed by : [facility], [address] [place], [place] [phone] Eosinophil abs 0.34 0.00 - 0.50 K/cumm C[facility]ER [facility] Comment:Testing performed by : [facility], [address] [place], [place] [phone] Basophil abs 0.07 0.00 - 0.10 K/cumm C[facility]ER [facility] Comment:Testing performed by : [facility], [address] [place] [address] Neutrophil pct 58.7 % CERNER [facility] Comment: Interpretive Data Percent cell count reference ranges are not reported, since discordance with absolute values may lead to misinterpretation of CBC data. Current Interpretive Data was last revised on 2017. Testing performed by: [facility], [address] [place] [phone] Lymphocyte pct 27.1 % CERNER [facility] Comment: Interpretive Data Percent cell count reference ranges are not reported, since discordance with absolute values may lead to misinterpretation of CBC data. Current Interpretive Data was last revised on 2017. Testing performed by: [facility], [address] [place] [phone] Monocyte pct 8.3 % CERNER [facility] Comment: Interpretive Data Percent cell count reference ranges are not reported, since discordance with absolute values may lead to misinterpretation of CBC data. Current Interpretive Data was last revised on 2017. Testing performed by: [facility], [address] [place] [phone] Eosinophil pct 4.9 % CERNER [facility] Comment: Interpretive Data Percent cell count reference ranges are not reported, since discordance with absolute values may lead to misinterpretation of CBC data. Current Interpretive Data was last revised on 2017. Testing performed by: [facility], [address] [place] [phone] Basophil pct 1.0 % GALINDO ROTHMAN Comment: Interpretive Data Percent cell count reference ranges are not reported, since discordance with absolute values may lead to misinterpretation of CBC data. Current Interpretive Data was last revised on 2017. Testing performed by: [facility], [address] [place] [phone] Blood 02/06/2025 8:21 AM CDT 02/06/2025 8:27 AM CDT us Rome Ybarra MD LAB BLOOD ORDERABLES Final Res ult Performing Organization Address City/[facility] Co de Phone Number [facility] Department [place] [address] * Thyroid Function Thurston (02/06/2025 8:21 AM CDT) Pathologist [facility] TSH 1.10 0.30 - 4.20 mcIUnit/mL Blood 02/06/2025 8:21 AM CDT 02/06/2025 8:27 AM CDT Rome Ybarra MD LAB BLOOD ORDERABLES Final Res ult Performing Organization Address City/[facility] de Phone Number [facility] Department [place] [address] * (ABNORMAL) CBC with auto differential (02/06/2025 8:21 AM CDT) WBC 6.94 3.80 - 9.90 K/cumm Comment:Testing performed by : [facility], [address] [place] [phone] Hgb 13.5 13.0 - 17.5 g/dL GALINDO ROTHMAN Comment:Testing performed by : [facility], [address] [place] [address] Hct 40.6 38.9 - 50.3 % CERNER BJ Comment:Testing performed by : [facility], [address] [place], [place] [phone] Plt 257 150 - 400 K/cumm CERDUGLAS BJ Comment:Testing performed by : [facility], [address] [place] [address] MPV 8.2 6.8 - 10.4 fL CERDUGLAS BJ Comment:Testing performed by : [facility], [address] [place], [place] [phone] RBC 4.63 4.30 - 5.80 M/cumm CERDUGLAS BJ Comment:Testing performed by : [facility], [address] [place], [place] [phone] MCV 87.9 81.3 - 96.4 fL [facility] Comment:Testing performed by : [facility], [address] [place] [address] MCH 29.3 27.1 - 33.3 pg [facility] Comment:Testing performed by : [facility], [address] [place] [address] MCHC 33.3 32.3 - 35.7 g/dL [facility]ERNER [facility] Comment:Testing performed by : [facility], [address] [place] [address] RDW CV 16.4(H) 11.1 - 14.9 % [facility]DU[facility]AS [facility] Comment:Testing performed by : [facility], [address] [place] [address] NRBC abs 0.00 0.00 - 0.01 K/cumm [facility] Comment:Testing performed by : [facility], [address] [place] [address] Blood 02/06/2025 8:21 AM CDT 02/06/2025 8:27 AM CDT Rome Ybarra MD LAB BLOOD ORDERABLES Final Res ult [facility] Department [place] [address] * Lactate dehydrogenase (LD) (02/06/2025 8:21 AM CDT) Pathologist [facility] Lactate dehydrogenase (LDH) 234 100 - 250 Units/L Blood 02/06/2025 8:21 AM CDT 02/06/2025 8:27 AM CDT Rome Ybarra MD LAB BLOOD ORDERABLES Final Res ult Performing Organization Address [facility] de Phone Number [facility]O [facility] Department [place] [address] * Comprehensive metabolic panel (02/06/2025 8:21 AM CDT) [facility] [address] [facility] Sodium 140 135 - 145 mmol/L Potassium, pl 4.7 3.3 - 4.9 mmol/L [facility] Chloride 108 97 - 110 mmol/L [facility] CO2 23 22 - 32 mmol/L [facility] Anion gap 9 2 - 15 mmol/L [facility] BUN 22 6 - 25 mg/dL [facility] Creatinine 1.16 0.80 - 1.30 mg/dL [facility] Glucose 157 70 - 199 mg/dL [facility] Comment: Interpretive Data Fasting glucose >/= 126 [...] interpretive data was last revised 2022. Calcium 9.9 8.5 - 10.3 mg/dL [facility] Bilirubin, total 0.5 0.1 - 1.2 mg/dL [facility] Protein, pl 7.1 6.5 - 8.5 g/dL [facility] Albumin 4.2 3.5 - 5.0 g/dL [facility] Alk phos 98 40 - 130 Units/L [facility] ALT 25 7 - 55 Units/L [facility] AST 22 10 - 50 Units/L [facility] Blood 02/06/2025 8:21 AM CDT 02/06/2025 8:27 AM CDT Rome Ybarra MD LAB BLOOD ORDERABLES Final Res ult [facility] Department [place] [address] * eGFR (01/16/2025 8:04 AM CDT) eGFR 69 >=60 mL/min/1. 73 m2 Comment: Interpretive Data [...] interpretive data was last reviewed 2021. Blood 01/16/2025 8:04 AM CDT 01/16/2025 8:17 AM CDT us Rome Ybarra MD LAB BLOOD ORDERABLES Final Res ult [facility] Department [place] [address] * Differential, auto (01/16/2025 8:04 AM CDT) Neutrophil abs 5.54 1.50 - 6.50 K/cumm Comment:Testing performed by : [facility], [address] [place] [address] Lymphocyte abs 1.98 0.80 - 3.30 K/cumm [facility] Comment:Testing performed by : [facility], [address] [place] [address] Monocyte abs 0.66 0.20 - 0.80 K/cumm [facility] Comment:Testing performed by : [facility], [address] [place] [address] Eosinophil abs 0.39 0.00 - 0.50 K/cumm [facility] Comment:Testing performed by : [facility], [address] [place] [address] Basophil abs 0.10 0.00 - 0.10 K/cumm [facility] Comment:Testing performed by : [facility], [address] [place] [phone] Neutrophil pct 63.9 % [facility] Comment: Interpretive Data Percent cell count reference ranges are not reported, since discordance with absolute values may lead to misinterpretation of CBC data. Current Interpretive Data was last revised on 2017. Testing performed by: [facility], [address] [place] [phone] Lymphocyte pct 22.9 % [facility] Comment: Interpretive Data Percent cell count reference ranges are not reported, since discordance with absolute values may lead to misinterpretation of CBC data. Current Interpretive Data was last revised on 2017. Testing performed by: [facility], [address] [place] [address] Monocyte pct 7.6 % [facility] Comment: Interpretive Data Percent cell count reference ranges are not reported, since discordance with absolute values may lead to misinterpretation of CBC data. Current Interpretive Data was last revised on 2017. Testing performed by: [facility], [address] [place] [phone] Eosinophil pct 4.4 % [facility] Comment: Interpretive Data Percent cell count reference ranges are not reported, since discordance with absolute values may lead to misinterpretation of CBC data. Current Interpretive Data was last revised on 2017. Testing performed by: [facility], [address] [place] [id number] Basophil pct 1.1 % [facility] Comment: Interpretive Data Percent cell count reference ranges are not reported, since discordance with absolute values may lead to misinterpretation of CBC data. Current Interpretive Data was last revised on 2017. Testing performed by: [facility], [address] [place] [phone] Blood 01/16/2025 8:04 AM CDT 01/16/2025 8:18 AM CDT Rome Ybarra MD LAB BLOOD ORDERABLES Final Res ult Performing Organization Address City/[facility]/ZIP Co de Phone Number [facility] Department [place] [address] * Thyroid Function [place] (01/16/2025 8:04 AM CDT) TSH 1.16 0.30 - 4.20 mcIUnit/mL Blood 01/16/2025 8:04 AM CDT 01/16/2025 8:17 AM CDT Rome Ybarra MD LAB BLOOD ORDERABLES Final Res ult [facility] [place] [address] * (ABNORMAL) CBC with auto differential (01/16/2025 8:04 AM CDT) WBC 8.66 3.80 - 9.90 K/cumm Comment:Testing performed by : [facility], [address] [place] [address] Hgb 13.3 13.0 - 17.5 g/dL [facility] Comment:Testing performed by : [facility], [address] [place] [address] Hct 40.4 38.9 - 50.3 % [facility] Comment:Testing performed by : [facility], [address] [place], [place] [id number] Plt 302 150 - 400 K/cumm [facility] Comment:Testing performed by : [facility], [address] [place] [address] MPV 8.4 6.8 - 10.4 fL [facility] Comment:Testing performed by : [facility], [address] [place], [place] [id number] RBC 4.62 4.30 - 5.80 M/cumm [facility]J Comment:Testing performed by : [facility], [address] [place] [address] MCV 87.4 81.3 - 96.4 fL [facility] Comment:Testing performed by : [facility], [address] [place] [address] MCH 28.9 27.1 - 33.3 pg [facility] Comment:Testing performed by : [facility], [address] [place] [address] MCHC 33.0 32.3 - 35.7 g/dL [facility] Comment:Testing performed by : [facility], [address] [place] [address] RDW CV 16.2(H) 11.1 - 14.9 % [facility]J Comment:Testing performed by : [facility], [address] [place] [address] NRBC abs 0.00 0.00 - 0.01 K/cumm [facility]J Comment:Testing performed by : [facility], [address] [place] [address] Blood 01/16/2025 8:04 AM CDT 01/16/2025 8:18 AM CDT us Rome Ybarra MD LAB BLOOD ORDERABLES Final Res ult [facility] [place] [address] * Lactate dehydrogenase (LD) (01/16/2025 8:04 AM CDT) Lactate dehydrogenase (LDH) 134 100 - 250 Units/L Blood 01/16/2025 8:04 AM CDT 01/16/2025 8:17 AM CDT Rome Ybarra MD LAB BLOOD ORDERABLES Final Res ult Performing Organization Address [facility] de Phone Number [facility] [place] [address] * (ABNORMAL) Comprehensive metabolic panel (01/16/2025 8:04 AM CDT) Pathologist [facility] Sodium 141 135 - 145 mmol/L Potassium, pl 4.5 3.3 - 4.9 mmol/L [facility] Chloride 106 97 - 110 mmol/L [facility] CO2 24 22 - 32 mmol/L [facility] Anion gap 11 2 - 15 mmol/L [facility] BUN 21 6 - 25 mg/dL [facility] Creatinine 1.13 0.80 - 1.30 mg/dL [facility] Glucose 205(H) 70 - 199 mg/dL [facility] Comment: Interpretive Data Fasting glucose >/= 126 [...] classification and Diagnosis of Diabetes Diabetes Care 202; 46: S19-S40. Current interpretive data was last revised 2022. Calcium 9.9 8.5 - 10.3 mg/dL [facility] Bilirubin, total 0.4 0.1 - 1.2 mg/dL [facility] Protein, pl 7.2 6.5 - 8.5 g/dL [facility] Albumin 4.2 3.5 - 5.0 g/dL [facility] Alk phos 101 40 - 130 Units/L [facility] ALT 25 7 - 55 Units/L [facility] AST 23 10 - 50 Units/L [facility] Blood 01/16/2025 8:04 AM CDT 01/16/2025 8:17 AM CDT Rome Ybarra MD LAB BLOOD ORDERABLES Final Res ult [facility] Department [place] [address] * PET/CT FDG Skull to Thigh (01/13/2025 12:46 PM CDT) Anatomical Region Laterality Modality N/A Positron Emissio n Tomography (PET) 01/13/2025 2:35 PM CDT Impressions 01/13/2025 3:32 PM CDT 1. No definite FDG PET/CT evidence of residual or recurrent disease. 2. Mildly avid bilateral cervical chain and right axillary nonenlarged lymph nodes are favored to be reactive. Recommend attention on follow-up. 3. Interval postsurgical changes of right parotidectomy, right eyebrow reconstruction, left posterior neck excision and right posterior back excision with associated mild FDG avidity, likely postsurgical. 4. Subcutaneous stranding in the left shoulder extending to the skin with associated uptake favored to be inflammatory. Recommend correlation with physical examination and history of recent injection. 5. Unchanged left adrenal myelolipoma. Dictated by: Faustino Chamorro MD The radiology attending physician has personally reviewed this study, and had reviewed and/or edited this written report and agrees with it. Electronically signed by: Marcio Dowd MD Narrative 01/13/2025 3:32 PM CDT EXAMINATION: TUMOR FDG-PET/CT IMAGING DATE OF STUDY: 01/13/2025 SCANNER: [facility] [employer] (SQ1). This is a high-resolution scanner, which can result in higher SUVs (and even detection of previously unrecognized small lesions) compared to older scanners. RADIOPHARMACEUTICAL: 10.0 mCi F-18 Fluorodeoxyglucose (FDG) i.v. 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 FNA of a right periauricular lymph node (seen on 07/29/2024 PET/CT) was performed on 08/08/2024 and showed metastatic melanoma. He has subsequently been treated with pembrolizumab (08/15/24 - ongoing). He recently underwent superficial parotidectomy, excision of the right brow, posterior neck, and lower back lesions. The study is requested for treatment monitoring during therapy. Subsequent treatment strategy. TECHNIQUE: The patient's fasting blood glucose level, measured by glucometer before injection of FDG, was 197 mg/dL. After intravenous administration of FDG, noncontrast CT images were obtained for attenuation correction and for fusion with emission PET images to allow for anatomical localization of PET findings. Emission PET images were then obtained. The study was interpreted on the [employer] workstation. The mean liver SUV (reported for training and quality manager purposes) is 3.3. The total scanned area was skull vertex to knees. Images of the body were obtained starting 70 minutes after injection of tracer. All reported SUVs are maximum SUVs, unless otherwise specified. COMPARISON: PET/CT 10/17/2024 DESCRIPTORS OF LESION FDG AVIDITY: Minimal: <= blood pool Mild: > blood pool and <= liver Moderate: > liver and <= 2x SUVmax liver Moderate to marked: >2x SUVmax liver and <= 3x SUVmax liver Marked: > 3x SUVmax liver FINDINGS: Slightly increased subcutaneous stranding and FDG avidity associated with the right forehead, likely related to recent right frontal reconstruction performed on 12/01/2024. Increased skin thickening and multiple foci of increased uptake within the posterior neck (images 43 through 57), likely related to recent posterior neck excision. Interval right superficial parotidectomy. Interval resection of the right lower back lesion. Mildly avid bilateral cervical chain and right axillary nonenlarged lymph nodes. Unchanged left upper lobe pulmonary nodule image 129 measuring 5 mm. This is too small to accurately characterize on PET/CT. Mild uptake associated with the gallbladder fundus may be related to adenomyomatosis. Unchanged 4.7 x 3.3 cm left adrenal mass containing fat and calcifications consistent with myelolipoma with maximum SUV of 4.7. Superficial subcutaneous focus of uptake in the left shoulder on image 112 with surrounding inflammatory stranding. Additional CT findings: Bilateral lens replacements. Carotid atherosclerotic calcifications. Coronary artery stents. Bilateral gynecomastia. Calcified mediastinal lymph nodes, hepatic granulomas consistent with old healed granulomatous disease. Unchanged too small to characterize hypoattenuating lesion in hepatic dome. Multiple bilateral renal cysts, some of which are hyperdense and likely proteinaceous or hemorrhagic. Ventral midline abdominal wall hernia containing loops of nonobstructed small bowel and fat. Multiple fused ribs likely from chronic fractures on the left side. Procedure Note Marcio Dowd MD - 01/13/2025 EXAMINATION: TUMOR FDG-PET/CT IMAGING DATE OF STUDY: 01/13/2025 SCANNER: [facility] [employer] (SQ1). This is a high-resolution scanner, which can result in higher SUVs (and even detection of previously unrecognized small lesions) compared to older scanners. RADIOPHARMACEUTICAL: 10.0 mCi F-18 Fluorodeoxyglucose (FDG) i.v. 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 FNA of a right periauricular lymph node (seen on 07/29/2024 PET/CT) was performed on 08/08/2024 and showed metastatic melanoma. He has subsequently been treated with pembrolizumab (08/15/24 - ongoing). He recently underwent superficial parotidectomy, excision of the right brow, posterior neck, and lower back lesions. The study is requested for treatment monitoring during therapy. Subsequent treatment strategy. TECHNIQUE: The patient's fasting blood glucose level, measured by glucometer before injection of FDG, was 197 mg/dL. After intravenous administration of FDG, noncontrast CT images were obtained for attenuation correction and for fusion with emission PET images to allow for anatomical localization of PET findings. Emission PET images were then obtained. The study was interpreted on the [employer] workstation. The mean liver SUV (reported for training and quality manager purposes) is 3.3. The total scanned area was skull vertex to knees. Images of the body were obtained starting 70 minutes after injection of tracer. All reported SUVs are maximum SUVs, unless otherwise specified. COMPARISON: PET/CT 10/17/2024 DESCRIPTORS OF LESION FDG AVIDITY: Minimal: <= blood pool Mild: > blood pool and <= liver Moderate: > liver and <= 2x SUVmax liver Moderate to marked: >2x SUVmax liver and <= 3x SUVmax liver Marked: > 3x SUVmax liver FINDINGS: Slightly increased subcutaneous stranding and FDG avidity associated with the right forehead, likely related to recent right frontal reconstruction performed on 12/01/2024. Increased skin thickening and multiple foci of increased uptake within the posterior neck (images 43 through 57), likely related to recent posterior neck excision. Interval right superficial parotidectomy. Interval resection of the right lower back lesion. Mildly avid bilateral cervical chain and right axillary nonenlarged lymph nodes. Unchanged left upper lobe pulmonary nodule image 129 measuring 5 mm. This is too small to accurately characterize on PET/CT. Mild uptake associated with the gallbladder fundus may be related to adenomyomatosis. Unchanged 4.7 x 3.3 cm left adrenal mass containing fat and calcifications consistent with myelolipoma with maximum SUV of 4.7. Superficial subcutaneous focus of uptake in the left shoulder on image 112 with surrounding inflammatory stranding. Additional CT findings: Bilateral lens replacements. Carotid atherosclerotic calcifications. Coronary artery stents. Bilateral gynecomastia. Calcified mediastinal lymph nodes, hepatic granulomas consistent with old healed granulomatous disease. Unchanged too small to characterize hypoattenuating lesion in hepatic dome. Multiple bilateral renal cysts, some of which are hyperdense and likely proteinaceous or hemorrhagic. Ventral midline abdominal wall hernia containing loops of nonobstructed small bowel and fat. Multiple fused ribs likely from chronic fractures on the left side. IMPRESSION: 1. No definite FDG PET/CT evidence of residual or recurrent disease. 2. Mildly avid bilateral cervical chain and right axillary nonenlarged lymph nodes are favored to be reactive. Recommend attention on follow-up. 3. Interval postsurgical changes of right parotidectomy, right eyebrow reconstruction, left posterior neck excision and right posterior back excision with associated mild FDG avidity, likely postsurgical. 4. Subcutaneous stranding in the left shoulder extending to the skin with associated uptake favored to be inflammatory. Recommend correlation with physical examination and history of recent injection. 5. Unchanged left adrenal myelolipoma. Dictated by: Faustino Chamorro MD The radiology attending physician has personally reviewed this study, and had reviewed and/or edited this written report and agrees with it. Electronically signed by: Marcio Dowd MD [place] Ybarra MD IMG PET PROCEDURES Final Resul t from Last 3 Months Insurance [employer] MEDICARE ADVANTAGE [facility] MEDICARE Address: [address] [address] MEDICARE ADVANTAGE [facility] MEDICARE Address: [facility] [address] [place] [address] [facility] MEDICARE ADVANTAGE [facility] MEDICARE Address: [facility] [address] [place] [address] Advance Directives For more information, please contact: [phone] * Full Code (Latest Code Status on File) Date Activated Date Inactivated Comments 10/28/2024 9:00 PM 10/29/2024 10:24 PM Care Teams Patient Care Secretary Relationship Specialty Start Date End Date Russ Patton MD [address] [address] PCP - General Internal Medicine 12/20/21 Toni Montalvo MD [address] [facility] 162 [facility] 22 [place] [address] Referring Physician Plastic Surgery 06/21/24 Benjy Barron MD [address] [facility] DEPT OTOLARYNGOLOGY, [facility] [address] [place] [address] Referring Physician Otolaryngology 07/07/24 Rome Ybarra MD [address] [facility] DIV IM MEDICAL ONCOLOGY, [facility] 7A, 7B, [address] [place] [address] Medical Oncologist/[facility] Medical Oncology 07/07/24 Jasmin Hernandez PA [address] [place] [id number] Physician Smt Machine Operator Physician Smt Machine Operator 07/11/24
--- OUTSIDE RECORDS SUMMARY | 2025-04-11 16:13 | XMS_ITS | Encounter Summary ---
Author Organization [facility] Address [address] [place] [address] Phone Care Team Providers Care Passenger Car Conductor Name Role Phone Russ Patton MD Primary Care Provider [phone] Yanni Torres MD Unavailable Cici Fry APRN, CNP Unavailable [place] Ybarra MD Unavailable [phone] Reason for Visit * Reason Comments Medication Refill Encounter Details Date Type Department Care Team (Late st Contact Info) Description 03/06/2024 Refill [facility] - Primary Care - [place] [address] [place] [address] Russ Patton MD [address] [place] [address] Medication Refill Social History Tobacco [...] Description 07/12/2025 9:30 AM CDT Office Visit [facility] - Primary Care - [place] [address] [place] [phone] Russ Patton MD [address] [place] [address] 08/02/2025 1:30 PM DESK REPORTER Office Visit [facility] [address] [facility] [address] [place] [address] Cici Fry APRN, ORDER RUNNER #2 [facility] [address] [place] [address] documented as of this encounter Visit Diagnoses Not on filedocumented in this encounter Additional Health Concerns Infection Onset Date Last Indicated Resolved Time COVID - 19 10/03/2024 10/03/2024 10/03/2024 11:2 7 AM DESK REPORTER Respiratory Rule-Out 10/03/2024 10/03/2024 025 11:38 AM DESK REPORTER COVID - 19 Confirmed 10/03/2024 10/03/2024 025 12:16 AM DESK REPORTER Assessment Noted Time PHQ-9 Depression Total Score: 0 01/07/20 24 10:24 AM CDT documented as of this encounter Care Teams Passenger Car Conductor Relationship Specialty Start Date End Date Russ Patton MD [address] [place] [address] PCP - General Internal Medicine 06/05/15 Yanni Torres MD 2 [facility] [address] [place] [address] Consulting Physician Cardiovascular Disease - Cardiology 05/04/18 Cici Fry APRN, MIAH #[address] [address] Nurse Practitioner Pulmonary Disease 07/23/22 Rome Ybarra MD [address] [place] [address] [place] [address] Consulting Physician Oncology 07/11/24 documented as of this encounter
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
--- OUTSIDE RECORDS SUMMARY | 2025-04-11 16:13 | XMS_ITS | Encounter Summary ---
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) Procedures PET/CT FDG Skull to Thigh Rome Ybarra MD [address] [facility] [address] [place] [address] Phone: tel: fax: [address] [address] Referral ID Status Reason Start Date Expiration Date Visits Re quested Visits Authorized [id number] Closed 02/08/2025 03/10/2026 2 2 Encounter Details Date Type Department Care Team (Latest Contact Info) Description 04/10/2025 7:46 AM CDT - 04/10/2025 11:59 PM CDT Hospital Encounter [facility] - PET [address] [facility] Floor [address] [place] [address] Arrived Discharge Disposition: Discharge to home or [...] on file 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 Dictated by: Marcos Guerin M.D (Ramanan). The radiology attending physician has personally reviewed this study, and had reviewed and/or edited this written report and agrees with it. Electronically signed by: Michael Clay MD, Ph.D Narrative 04/10/2025 12:01 PM CDT EXAMINATION: TUMOR FDG-PET/CT IMAGING DATE OF STUDY: 04/10/2025 SCANNER: [facility] (SQ1). This is a high-resolution scanner, which [...] obtained. The study was interpreted on the [employer] workstation. The mean liver SUV (reported for quality improvement coordinator purposes) is 3.7. The total scanned area [...] FDG-PET/CT IMAGING DATE OF STUDY: 04/10/2025 SCANNER: [facility] [employer] (SQ1). This is a high-resolution scanner, which [...] obtained. The study was interpreted on the [employer] workstation. The mean liver SUV (reported for quality improvement coordinator purposes) is 3.7. The total scanned area [...] t documented in this encounter Visit Diagnoses Not on filedocumented in this encounter Care Teams Dramatic Reader Relationship Specialty Start Date End Date Russ Patton MD [address] [place] [address] PCP - General Internal Medicine 12/20/21 Toni Montalvo MD [address] [place] [address] Referring Physician Plastic Surgery 06/21/24 Benjy Barron MD [address] [facility] DEPT OTOLARYNGOLOGY, [facility] [address] [place] [address] Referring Physician Otolaryngology 07/07/24 Rome Ybarra MD [address] [facility] DIV IM MEDICAL ONCOLOGY, [facility] [address] [place] [address] Medical Oncologist/Call Out Clerk Medical Oncology 07/07/24 Jasmin Hernandez PA [address] [place] [address] Physician Ream Cutter Physician Ream Cutter 07/11/24 documented as of this encounter
--- OUTSIDE RECORDS SUMMARY | 2025-04-11 16:13 | XMS_ITS | Encounter Summary ---
Author Organization [facility] Address [address] [place] [address] Phone Care Team Providers Care Lead Software Qa Engineer Name Role Phone Russ Patton MD Primary Care Provider [phone] Yanni Torres MD Unavailable [phone] Cici Fry APRN, CNP Unavailable Rome Ybarra MD Unavailable [phone] Reason for Visit * Reason Comments Medication Refill Encounter Details Date Type Department Care Team (Late st Contact Info) Description 12/26/2021 Refill [facility] - Primary Care - [place] [address] [place] [address] Russ Patton MD [address] [place] [address] Medication Refill Social History Tobacco Use Types Packs/Day Years Used Date Smoking Tobacco: Never Smokeless Tobacco: Never Alcohol Use Standard Drinks/Week Comments No 0 (1 standard drink = 0.6 oz pur e alcohol) PHQ-2 Answer Date Recorded Total Score - Questions 1-9 0 10/22 Sexually Active Control Partners Comments Not Currently Sex and Gender Information Value Date Recorded Sex Assigned at Not on file Legal Sex Male 9:59 PM CDT Gender Identity Not on file Sexual Orientation Not on file Occupation Industry Job Start Date Job End Date retired Not on file Not on file Not on file COVID-19 Exposure Response Date Recorded In the last 10 days, have yo u been in contact with someone who was confirmed or suspected to have Coronavirus/COVID-19? No / Unsure 12/20/2021 1:20 PM CDT documented as of this encounter Miscellaneous Notes * Telephone Encounter - Marianela Mcelroy RN - 12/26/2021 9:57 AM CDT Medication approved and signed per standing order protocol. documented in this encounter Plan of Treatment Upcoming Encounters Date Type Department Care Team (Late st Contact Info) Description 07/12/2025 9:30 AM CDT [facility] Primary [facility] - [place] [address] [place] [address] Russ Patton MD [address] [place] [address] 08/02/2025 1:30 PM CONTACT MANAGER Office Visit [facility] - [place] [address] [facility] [address] [place] [address] Cici Fry APRN, ELECTROPHYSIOLOGY NURSE PRACTITIONER [address] [facility] [address] [place] [address] documented as of this encounter Visit Diagnoses Diagnosis Essential hypertension Unspecified essential hypertension documented in this encounter Additional Health Concerns Infection Onset Date Last Indicated Resolved Time COVID - 19 02/20/2022 02/20/2022 02/21/2022 2:56 AM CDT COVID - 19 03/26/2022 03/26/2022 04/05/2022 12:1 6 AM CDT COVID - 19 Confirmed 03/26/2022 03/26/2022 022 12:16 AM CDT COVID - 19 10/03/2024 10/03/2024 10/03/2024 11:2 7 AM CONTACT MANAGER Respiratory Rule-Out 10/03/2024 10/03/2024 025 11:38 AM CONTACT MANAGER COVID - 19 Confirmed 10/03/2024 10/03/2024 025 12:16 AM CONTACT MANAGER Assessment Noted Time PHQ-9 Depression Total Score: 0 10/26/19 21 10:00 AM CONTACT MANAGER documented as of this encounter Care Teams Lead Software Qa Engineer Relationship Specialty Start Date End Date Russ Patton MD [address] [place] [address] PCP - General Internal Medicine 06/05/15 Yanni Torres MD 2 [facility] [address] [place] [address] Consulting Physician Cardiovascular Disease - Cardiology 05/04/18 Cici Fry APRN, ELECTROPHYSIOLOGY NURSE PRACTITIONER #2 [facility] [address] [place] [address] Nurse Practitioner Pulmonary Disease 07/23/22 Rome Ybarra MD [address] [facility] [address] [place] [address] Consulting Physician Oncology 07/11/24 documented as of this encounter
--- OUTSIDE RECORDS SUMMARY | 2025-04-11 16:13 | XMS_ITS | Clinical Summary ---
Author Organization [facility] Medical [facility] Building A Address [address] [place] [address] Care Team Providers Care Tutoring Assistant Name Role Phone Russ Patton MD Primary Care Provider + Toni Montalvo MD Unavailable [phone] Benjy Barron MD Unavailable + Rome Ybarra MD Unavailable [phone] Jasmin Hernandez Unavailable [phone] Allergies Active Allergy Reactions Criticality Noted Date Comments Nitroglycerin Other (See comments) High 02/20/2022 Pass out Blood pressure dropped and stopped breathing Although patient also had received multiple doses of morphine at the time and from recounting of story, unclear if NTG or morphine related ( -Anjum Jade 12/01/2024) Medications metFORMIN (GLUCOPHAGE) 1,000 mg [...] times a day Apply to brow and muslim incisions 3 times a day 15 g [...] eyebrow 08/01/2024 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 03/17/2022 Essential hypertension 03/17/2022 Mixed hyperlipidemia 03/17/2022 Encounters Date Type Department Care Team Description 04/10/2025 1:30 PM CDT Infusion [facility] - Infusion [address] [facility] Floor 6 [place] [address] 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); Malignant melanoma of neck (HCC) 04/10/2025 12:20 PM CDT Office Visit [facility] Oncology [facility] Floor 6 [place] [address] Rome Ybarra MD 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); Malignant melanoma of neck (HCC) 04/10/2025 11:00 AM CDT Lab [facility] - Lab Collection [address] Floor 6 [place] [address] Malignant melanoma of neck (HCC); 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) 04/10/2025 7:46 AM CDT - 04/10/2025 11:59 PM CDT Hospital Encounter [facility] - PET [address] Floor [address] [place] [address] Arrived Discharge Disposition: Discharge to home or self care 04/10/2025 7:46 AM CDT - 04/10/2025 11:59 PM CDT Hospital Encounter [facility] - PET [address] Floor 8 [place] [address] 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); Malignant melanoma of neck (HCC) Discharge Disposition: Discharge to home or self care 03/20/2025 12:30 PM CDT Infusion [facility] - Infusion [address] Floor 6 [place] [address] 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); Malignant melanoma of neck (HCC) 03/20/2025 11:20 AM CDT Office Visit [facility] Oncology [facility] Floor 6 [place] [address] Rome Ybarra MD Malignant melanoma of neck (HCC) (Primary Dx); 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) 03/20/2025 10:15 AM CDT Lab [facility] - Lab Collection [address] Floor 6 [place] [address] Malignant melanoma of neck (HCC); 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) 03/13/2025 2:30 PM CDT Office Visit [facility] Ophthalmology [address] [place] [address] Dexter Glaser MD 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) 02/28/2025 Telephone [facility] Oncology [address] [facility] [address] [place] [address] Monico Parrish CMA 02/27/2025 10:30 AM CDT Infusion [facility] - Infusion [facility] [address] [place] [address] 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); Malignant melanoma of neck (HCC) 02/27/2025 9:20 AM CDT Office Visit [facility] Oncology [facility] Floor 6 [place] [address] Rome Ybarra MD 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); Malignant melanoma of neck (HCC) 02/27/2025 8:15 AM CDT Lab [facility] - Lab Collection [facility] Floor 6 [place] [address] Malignant melanoma of neck (HCC); 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) 02/06/2025 9:00 AM CDT Infusion [facility] - Infusion [facility] [address] [place] [address] 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); Malignant melanoma of neck (HCC) 02/06/2025 8:00 AM CDT Lab [facility] - Lab Collection [address] [place], [place] [address] Floor 6 [place] [address] Malignant melanoma of neck (HCC); 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) 02/01/2025 Orders Only [facility] Oncology [address] [place] [address] Floor 6 [place] [address] Rome Ybarra MD 01/26/2025 8:20 AM CDT Office Visit [facility] Department of Otolaryngology Head-Neck Division [address] [place] [address] Floor 5 [place] [address] Benjy Barron MD Malignant melanoma of neck (HCC) (Primary Dx) 01/16/2025 10:00 AM CDT Infusion [facility] - Infusion [address] Floor 6 [place] [address] 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); Malignant melanoma of neck (HCC) 01/16/2025 9:00 AM CDT Office Visit [facility] Oncology [facility] Floor 6 [place] [address] Rome Ybarra MD 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); Malignant melanoma of neck (HCC) 01/16/2025 8:00 AM CDT Lab [facility] - Lab Collection [address] Floor 6 [place] [address] Malignant melanoma of neck (HCC); 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) 01/13/2025 9:58 AM CDT - 01/13/2025 11:59 PM CDT Hospital Encounter [facility] - PET [address] Floor 8 [place] [address] Discharge Disposition: Discharge to home or self care 01/13/2025 9:58 AM CDT - 01/13/2025 11:59 PM CDT Hospital Encounter [facility] - PET [address] Floor [address] [place] [address] 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[employer] Gender Identity Not on file Sexual Orientation Not on file Obstetrics History Last Filed Vital Signs Vital Sign Reading [...] 01/16/2025 8:17 AM CDT Plan of Treatment Health Maintenance Due Date Last Done Comments Colon Cancer Screening-Colonoscopy 1955 Depression Screening 1955 Hepatitis C Screening 1955 Well Visit 65+ 2018 Covid-19 Vaccine (4 - 2023-2 5 season) 2024 07/08/2021, 11/14/2020, 10/24/2020 Influenza Vaccine (#1) 2025 , 08/03/2023, 07/07/2023, Additional history exists Fall Risk Assessment 12/01/2025 12/01/2024, 08/16/20 24 DTaP/Tdap/Td Vaccine (4 - Td or Tdap) 01/10/2035 01/10/2025, 03/07/2022, 06/11/2020, Additional history exists Hepatitis B Screening Completed 06/10/2018 Pneumococcal vaccine 65+ Completed 024, 06/25/2019, 06/10/2018, Additional history exists Zoster Vaccine Completed 01/10/2025, 06/22, 05/21/2017 Medical Devices Implanted Type Area Fertilizer Mixer Device Identifier Shelf Expiration Date Model / [...] MD LAB BLOOD ORDERABLES Final Res ult [facility] Department [place] [address] * Differential, auto (04/10/2025 10:36 AM CDT) Neutrophil abs 6.49 1.50 - 6.50 K/cumm Comment:Testing performed by : [facility], [address] [place], [place] [phone] Lymphocyte abs 1.60 0.80 - 3.30 K/cumm [facility] Comment:Testing performed by : [facility], [address] [place] [phone] Monocyte abs 0.73 0.20 - 0.80 K/cumm [facility] Comment:Testing performed by : [facility], [address] [place] [phone] Eosinophil abs 0.24 0.00 - 0.50 K/cumm [facility] Comment:Testing performed by : [facility], [address] [place] [phone] Basophil abs 0.07 0.00 - 0.10 K/cumm [facility] Comment:Testing performed by : [facility], [address] [place] [phone] Neutrophil pct 71.2 % [facility] Comment: Interpretive Data Percent cell count reference ranges are not reported, since discordance with absolute values may lead to misinterpretation of CBC data. Current Interpretive Data was last revised on 2017. Testing performed by: [facility], [address] [place] [phone] Lymphocyte pct 17.5 % [facility] Comment: Interpretive Data Percent cell count reference ranges are not reported, since discordance with absolute values may lead to misinterpretation of CBC data. Current Interpretive Data was last revised on 2017. Testing performed by: [facility], [address] [place] [phone] Monocyte pct 7.9 % [facility] Comment: Interpretive Data Percent cell count reference ranges are not reported, since discordance with absolute values may lead to misinterpretation of CBC data. Current Interpretive Data was last revised on 2017. Testing performed by: [facility], [address] [place] [phone] Eosinophil pct 2.6 % [facility] Comment: Interpretive Data Percent cell count reference ranges are not reported, since discordance with absolute values may lead to misinterpretation of CBC data. Current Interpretive Data was last revised on 2017. Testing performed by: [facility], [address] [place] [phone] Basophil pct 0.8 % [facility] Comment: Interpretive Data Percent cell count reference ranges are not reported, since discordance with absolute values may lead to misinterpretation of CBC data. Current Interpretive Data was last revised on 2017. Testing performed by: [facility], [address] [place] [phone] Blood 04/10/2025 10:3 6 AM CDT 04/10/2025 10:47 AM CDT us Rome Ybarra MD LAB BLOOD ORDERABLES Final Res ult Performing Organization Address City/[facility]/ZIP Co de Phone Number [facility] Department [place] [address] * Thyroid Function [place] (04/10/2025 10:36 AM CDT) [facility] TSH 1.10 0.30 - 4.20 mcIUnit/mL Blood 04/10/2025 10:3 6 AM CDT 04/10/2025 10:48 AM CDT Rome Ybarra MD LAB BLOOD ORDERABLES Final Res ult Performing Organization Address [facility] Co de Phone Number [facility] Department [place] [employer] [place] [address] * (ABNORMAL) CBC with auto differential (04/10/2025 10:36 AM CDT) [facility] WBC 9.12 3.80 - 9.90 K/cumm Comment:Testing performed by : [facility], [address] [place] [address] Hgb 13.9 13.0 - 17.5 g/dL [facility] Comment:Testing performed by : [facility], [address] [place] [address] Hct 42.1 38.9 - 50.3 % [facility] Comment:Testing performed by : [facility], [address] [place] [phone] Plt 260 150 - 400 K/cumm [facility] Comment:Testing performed by : [facility], [address] [place] [address] MPV 8.4 6.8 - 10.4 fL [facility] Comment:Testing performed by : [facility], [address] [place] [address] RBC 4.81 4.30 - 5.80 M/cumm [facility] Comment:Testing performed by : [facility], [address] [place] [phone] MCV 87.6 81.3 - 96.4 fL [facility] Comment:Testing performed by : [facility], [address] [place], [place] [phone] MCH 28.9 27.1 - 33.3 pg [facility] Comment:Testing performed by : [facility], [address] [place], [place] [phone] MCHC 33.0 32.3 - 35.7 g/dL [facility] Comment:Testing performed by : [facility], [address] [place], [place] [phone] RDW CV 16.1(H) 11.1 - 14.9 % [facility] Comment:Testing performed by : [facility], [address] [place], [place] [phone] NRBC abs 0.00 0.00 - 0.01 K/cumm [facility] Comment:Testing performed by : [facility], [address] [place], [place] [phone] Blood 04/10/2025 10:3 6 AM CDT 04/10/2025 10:47 AM CDT Rome Ybarra MD LAB BLOOD ORDERABLES Final Res ult Performing Organization Address [facility] Co de Phone Number [facility] [place] [employer] [place] [address] * Lactate dehydrogenase (LD) (04/10/2025 10:36 AM CDT) Lactate dehydrogenase (LDH) 110 100 - 250 Units/L Blood 04/10/2025 10:3 6 AM CDT 04/10/2025 10:48 AM CDT Rome Ybarra MD LAB BLOOD ORDERABLES Final Res ult Performing Organization Address [facility] Co de Phone Number [facility] [place] [address] * (ABNORMAL) Comprehensive metabolic panel (04/10/2025 10:36 AM CDT) Sodium 138 135 - 145 mmol/L Potassium, pl 4.9 3.3 - 4.9 mmol/L [facility] Chloride 105 97 - 110 mmol/L [facility] CO2 24 22 - 32 mmol/L [facility] Anion gap 9 2 - 15 mmol/L [facility] BUN 19 6 - 25 mg/dL [facility] Creatinine 1.16 0.80 - 1.30 mg/dL [facility] Glucose 217(H) 70 - 199 mg/dL [facility] Comment: Interpretive Data Fasting glucose >/= 126 [...] 2022. Calcium 9.6 8.5 - 10.3 mg/dL [facility] Bilirubin, total 0.7 0.1 - 1.2 mg/dL [facility] Protein, pl 7.1 6.5 - 8.5 g/dL [facility] Albumin 4.3 3.5 - 5.0 g/dL [facility] Alk phos 104 40 - 130 Units/L [facility] ALT 28 7 - 55 Units/L [facility] AST 20 10 - 50 Units/L [facility] Blood 04/10/2025 10:3 6 AM CDT 04/10/2025 10:48 AM CDT Rome Ybarra MD LAB BLOOD ORDERABLES Final Res ult [facility] Department [place] [address] * PET/CT FDG Skull to Thigh (04/10/2025 [...] FDG-PET/CT IMAGING DATE OF STUDY: 04/10/2025 SCANNER: [facility] Direct (SQ1). This is a high-resolution scanner, which [...] obtained. The study was interpreted on the [employer] workstation. The mean liver SUV (reported for quality control engineering technician purposes) is 3.7. The total scanned area [...] FDG-PET/CT IMAGING DATE OF STUDY: 04/10/2025 SCANNER: [facility] (SQ1). This is a high-resolution scanner, which [...] obtained. The study was interpreted on the [employer] workstation. The mean liver SUV (reported for quality control engineering technician purposes) is 3.7. The total scanned area [...] MD IMG PET PROCEDURES Final Resul t * eGFR [...] LAB BLOOD ORDERABLES Final Res ult [facility] Department [place] [address] * (ABNORMAL) Differential, auto (03/20/2025 10:13 AM CDT) Neutrophil abs 5.68 1.50 - 6.50 K/cumm Comment:Testing performed by : [facility], [address] [place], [place] [phone] Lymphocyte abs 1.74 0.80 - 3.30 K/cumm [facility] Comment:Testing performed by : [facility], [address] [place] [phone] Monocyte abs 0.58 0.20 - 0.80 K/cumm [facility] Comment:Testing performed by : [facility], [address] [place] [phone] Eosinophil abs 0.27 0.00 - 0.50 K/cumm [facility] Comment:Testing performed by : [facility], [address] [place] [phone] Basophil abs 0.11(H) 0.00 - 0.10 K/cumm [facility] Comment:Testing performed by : [facility], [address] [place] [phone] Neutrophil pct 67.9 % [facility] Comment: Interpretive Data Percent cell count reference ranges are not reported, since discordance with absolute values may lead to misinterpretation of CBC data. Current Interpretive Data was last revised on 2017. Testing performed by: [facility], [address] [place] [phone] Lymphocyte pct 20.8 % [facility] Comment: Interpretive Data Percent cell count reference ranges are not reported, since discordance with absolute values may lead to misinterpretation of CBC data. Current Interpretive Data was last revised on 2017. Testing performed by: [facility], [address] [place] [phone] Monocyte pct 6.9 % [facility] Comment: Interpretive Data Percent cell count reference ranges are not reported, since discordance with absolute values may lead to misinterpretation of CBC data. Current Interpretive Data was last revised on 2017. Testing performed by: [facility], [address] [place] [phone] Eosinophil pct 3.2 % [facility] Comment: Interpretive Data Percent cell count reference ranges are not reported, since discordance with absolute values may lead to misinterpretation of CBC data. Current Interpretive Data was last revised on 2017. Testing performed by: [facility], [address] [place] [phone] Basophil pct 1.3 % [facility] Comment: Interpretive Data Percent cell count reference ranges are not reported, since discordance with absolute values may lead to misinterpretation of CBC data. Current Interpretive Data was last revised on 2017. Testing performed by: [facility], [address] [place] [phone] Blood 03/20/2025 10:1 3 AM CDT 03/20/2025 10:18 AM CDT Rome Ybarra MD LAB BLOOD ORDERABLES Final Res ult [facility] Department [place] [employer] [place] [address] * Thyroid Function [place] (03/20/2025 10:13 AM CDT) TSH 1.19 0.30 - 4.20 mcIUnit/mL Blood 03/20/2025 10:1 3 AM CDT 03/20/2025 10:19 AM CDT Rome Ybarra MD LAB BLOOD ORDERABLES Final Res ult [facility] [place] [address] * (ABNORMAL) CBC with auto differential (03/20/2025 10:13 AM CDT) WBC 8.36 3.80 - 9.90 K/cumm Comment:Testing performed by : [facility], [address] [place] [address] Hgb 13.9 13.0 - 17.5 g/dL [facility] Comment:Testing performed by : [facility], [address] [place] [address] Hct 41.4 38.9 - 50.3 % [facility] Comment:Testing performed by : [facility], [address] [place] [address] Plt 270 150 - 400 K/cumm [facility] Comment:Testing performed by : [facility], [address] [place] [address] MPV 8.1 6.8 - 10.4 fL [facility] Comment:Testing performed by : [facility], [address] [place], [place] [phone] RBC 4.71 4.30 - 5.80 M/cumm [facility] Comment:Testing performed by : [facility], [address] [place] [address] MCV 87.8 81.3 - 96.4 fL [facility] Comment:Testing performed by : [facility], [address] [place] [address] MCH 29.4 27.1 - 33.3 pg [facility] Comment:Testing performed by : [facility], [address] [place] [address] MCHC 33.5 32.3 - 35.7 g/dL [facility] Comment:Testing performed by : [facility], [address] [place] [address] RDW CV 16.6(H) 11.1 - 14.9 % [facility] Comment:Testing performed by : [facility], [address] [place] [address] NRBC abs 0.00 0.00 - 0.01 K/cumm [facility] Comment:Testing performed by : [facility], [address] [place] [address] Blood 03/20/2025 10:1 3 AM CDT 03/20/2025 10:18 AM CDT us Rome Ybarra MD LAB BLOOD ORDERABLES Final Res ult Performing Organization Address City/[facility] Co de Phone Number [facility] [place] [address] * Lactate dehydrogenase (LD) (03/20/2025 10:13 AM CDT) Lactate dehydrogenase (LDH) 114 100 - 250 Units/L Blood 03/20/2025 10:1 3 AM CDT 03/20/2025 10:19 AM CDT Rome Ybarra MD LAB BLOOD ORDERABLES Final Res ult Performing Organization Address [facility] de Phone Number [facility] Department [place] [address] * (ABNORMAL) Comprehensive metabolic panel (03/20/2025 10:13 AM CDT) Pathologist [facility] Sodium 140 135 - 145 mmol/L Potassium, pl 4.5 3.3 - 4.9 mmol/L [facility] Chloride 107 97 - 110 mmol/L [facility] CO2 21(L) 22 - 32 mmol/L [facility] Anion gap 12 2 - 15 mmol/L [facility] BUN 20 6 - 25 mg/dL [facility] Creatinine 1.14 0.80 - 1.30 mg/dL [facility] Glucose 192 70 - 199 mg/dL [facility] Comment: Interpretive Data Fasting glucose >/= 126 [...] 2022. Calcium 9.6 8.5 - 10.3 mg/dL [facility] Bilirubin, total 0.5 0.1 - 1.2 mg/dL [facility] Protein, pl 6.9 6.5 - 8.5 g/dL [facility] Albumin 4.2 3.5 - 5.0 g/dL [facility] Alk phos 103 40 - 130 Units/L [facility] ALT 19 7 - 55 Units/L [facility] AST 20 10 - 50 Units/L [facility] Blood 03/20/2025 10:1 3 AM CDT 03/20/2025 10:19 AM CDT us Rome Ybarra MD LAB BLOOD ORDERABLES Final Res ult [facility] Department [place] [address] * (ABNORMAL) eGFR (02/27/2025 8:17 AM CDT) [...] MD LAB BLOOD ORDERABLES Final Res ult [facility] Department [place] [address] * Differential, auto (02/27/2025 8:17 AM CDT) Neutrophil abs 4.90 1.50 - 6.50 K/cumm Comment:Testing performed by : [facility], [address] [place], [place] [phone] Lymphocyte abs 1.91 0.80 - 3.30 K/cumm [facility] Comment:Testing performed by : [facility], [address] [place], [place] [phone] Monocyte abs 0.68 0.20 - 0.80 K/cumm [facility] Comment:Testing performed by : [facility], [address] [place] [phone] Eosinophil abs 0.33 0.00 - 0.50 K/cumm [facility] Comment:Testing performed by : [facility], [address] [place], [place] [phone] Basophil abs 0.09 0.00 - 0.10 K/cumm [facility] Comment:Testing performed by : [facility], [address] [place] [phone] Neutrophil pct 62.0 % [facility] Comment: Interpretive Data Percent cell count reference ranges are not reported, since discordance with absolute values may lead to misinterpretation of CBC data. Current Interpretive Data was last revised on 2017. Testing performed by: [facility], [address] [place] [phone] Lymphocyte pct 24.2 % CERNER BJ Comment: Interpretive Data Percent cell count reference ranges are not reported, since discordance with absolute values may lead to misinterpretation of CBC data. Current Interpretive Data was last revised on 2017. Testing performed by: [facility], [address] [place] [phone] Monocyte pct 8.5 % [facility] Comment: Interpretive Data Percent cell count reference ranges are not reported, since discordance with absolute values may lead to misinterpretation of CBC data. Current Interpretive Data was last revised on 2017. Testing performed by: [facility], [address] [place] [phone] Eosinophil pct 4.2 % [facility] Comment: Interpretive Data Percent cell count reference ranges are not reported, since discordance with absolute values may lead to misinterpretation of CBC data. Current Interpretive Data was last revised on 2017. Testing performed by: [facility], [address] [place], [place] [phone] Basophil pct 1.1 % [facility] Comment: Interpretive Data Percent cell count reference ranges are not reported, since discordance with absolute values may lead to misinterpretation of CBC data. Current Interpretive Data was last revised on 2017. Testing performed by: [facility], [address] [place] [phone] Blood 02/27/2025 8:17 AM CDT 02/27/2025 8:21 AM CDT Rome Ybarra MD LAB BLOOD ORDERABLES Final Res ult Performing Organization Address City/[facility]/ZIP Co de Phone Number [facility] [place] [address] * Thyroid Function [place] (02/27/2025 8:17 AM CDT) TSH 1.57 0.30 - 4.20 mcIUnit/mL Blood 02/27/2025 8:17 AM CDT 02/27/2025 8:28 AM CDT Rome Ybarra MD LAB BLOOD ORDERABLES Final Res ult Performing Organization Address City/[facility] Co de Phone Number [facility] Department [place] [address] * (ABNORMAL) CBC with auto differential (02/27/2025 8:17 AM CDT) WBC 7.90 3.80 - 9.90 K/cumm Comment:Testing performed by : [facility], [address] [place] [address] Hgb 13.6 13.0 - 17.5 g/dL CERNER BJ Comment:Testing performed by : [facility], [address] [place] [address] Hct 40.4 38.9 - 50.3 % CERNER BJ Comment:Testing performed by : [facility], [address] [place] [address] Plt 259 150 - 400 K/cumm CERNER BJ Comment:Testing performed by : [facility], [address] [place] [address] MPV 8.4 6.8 - 10.4 fL CERNER BJ Comment:Testing performed by : [facility], [address] [place] [address] RBC 4.65 4.30 - 5.80 M/cumm CERNER BJ Comment:Testing performed by : [facility], [address] [place] [address] MCV 86.9 81.3 - 96.4 fL CERNER BJ Comment:Testing performed by : [facility], [address] [place] [address] MCH 29.2 27.1 - 33.3 pg CERNER BJ Comment:Testing performed by : [facility], [address] [place] [address] MCHC 33.6 32.3 - 35.7 g/dL CERNER BJ Comment:Testing performed by : [facility], [address] [place] [address] RDW CV 17.0(H) 11.1 - 14.9 % CERNER BJ Comment:Testing performed by : [facility], [address] [place] [address] [place] [phone] NRBC abs 0.00 0.00 - 0.01 K/cumm [facility] Comment:Testing performed by : [facility], [address] [place] [phone] Blood 02/27/2025 8:17 AM CDT 02/27/2025 8:21 AM CDT Rome Ybarra MD LAB BLOOD ORDERABLES Final Res ult Performing Organization Address City/State/[facility] [place] [address] * TSH (02/27/2025 8:17 AM CDT) Thyroid Stimulating Hormone See Comment 0.30 - 4.20 mcIUnit/m L Comment:Credited, duplicate test. Blood 02/27/2025 8:17 AM CDT 02/27/2025 8:28 AM CDT Rome Ybarra MD LAB BLOOD ORDERABLES Final Res ult Performing Organization Address [facility] Co de Phone Number [facility] Department [place] [address] * Lactate dehydrogenase (LD) (02/27/2025 8:17 AM CDT) Lactate dehydrogenase (LDH) 142 100 - 250 Units/L Blood 02/27/2025 8:17 AM CDT 02/27/2025 8:28 AM CDT Rome Ybarra MD LAB BLOOD ORDERABLES Final Res ult Performing Organization Address [facility] Co de Phone Number [facility] [place] [address] * (ABNORMAL) Comprehensive metabolic panel (02/27/2025 8:17 AM CDT) Sodium 140 135 - 145 mmol/L Potassium, pl 4.4 3.3 - 4.9 mmol/L [facility] Chloride 107 97 - 110 mmol/L [facility] CO2 22 22 - 32 mmol/L [facility] Anion gap 11 2 - 15 mmol/L [facility] BUN 24 6 - 25 mg/dL [facility] Creatinine 1.30 0.80 - 1.30 mg/dL [facility] Glucose 210(H) 70 - 199 mg/dL [facility] Comment: Interpretive Data Fasting glucose >/= 126 [...] 2022. Calcium 9.5 8.5 - 10.3 mg/dL [facility] Bilirubin, total 0.4 0.1 - 1.2 mg/dL [facility] Protein, pl 6.9 6.5 - 8.5 g/dL [facility] Albumin 4.2 3.5 - 5.0 g/dL [facility] Alk phos 105 40 - 130 Units/L [facility] ALT 23 7 - 55 Units/L [facility] AST 17 10 - 50 Units/L [facility] Blood 02/27/2025 8:17 AM CDT 02/27/2025 8:28 AM CDT us Rome Ybarra MD LAB BLOOD ORDERABLES Final Res ult [facility] One [facility] Department [place] [address] * eGFR (02/06/2025 8:21 AM CDT) Pathologist [facility] eGFR 67 >=60 mL/min/1. 73 m2 Comment: [...] MD LAB BLOOD ORDERABLES Final Res ult [facility] One [facility] Department [place] [address] * Differential, auto (02/06/2025 8:21 AM CDT) Neutrophil abs 4.08 1.50 - 6.50 K/cumm Comment:Testing performed by : [facility], [address] [place] [phone] Lymphocyte abs 1.88 0.80 - 3.30 K/cumm [facility] Comment:Testing performed by : [facility], [address] [place] [phone] Monocyte abs 0.58 0.20 - 0.80 K/cumm [facility] Comment:Testing performed by : [facility], [address] [place] [phone] Eosinophil abs 0.34 0.00 - 0.50 K/cumm [facility] Comment:Testing performed by : [facility], [address] [place] [phone] Basophil abs 0.07 0.00 - 0.10 K/cumm [facility] Comment:Testing performed by : [facility], [address] [place] [phone] Neutrophil pct 58.7 % [facility] Comment: Interpretive Data Percent cell count reference ranges are not reported, since discordance with absolute values may lead to misinterpretation of CBC data. Current Interpretive Data was last revised on 2017. Testing performed by: [facility], [address] [place] [phone] Lymphocyte pct 27.1 % CERNER BJ Comment: Interpretive Data Percent cell count reference ranges are not reported, since discordance with absolute values may lead to misinterpretation of CBC data. Current Interpretive Data was last revised on 2017. Testing performed by: [facility], [address] [place] [phone] Monocyte pct 8.3 % [facility] Comment: Interpretive Data Percent cell count reference ranges are not reported, since discordance with absolute values may lead to misinterpretation of CBC data. Current Interpretive Data was last revised on 2017. Testing performed by: [facility], [address] [place] [phone] Eosinophil pct 4.9 % [facility] Comment: Interpretive Data Percent cell count reference ranges are not reported, since discordance with absolute values may lead to misinterpretation of CBC data. Current Interpretive Data was last revised on 2017. Testing performed by: [facility], [address] [place] [phone] Basophil pct 1.0 % [facility] Comment: Interpretive Data Percent cell count reference ranges are not reported, since discordance with absolute values may lead to misinterpretation of CBC data. Current Interpretive Data was last revised on 2017. Testing performed by: [facility], [address] [place] [phone] Blood 02/06/2025 8:21 AM CDT 02/06/2025 8:27 AM CDT Rome Ybarra MD LAB BLOOD ORDERABLES Final Res ult [facility] One [facility] [place] [address] * Thyroid Function [place] (02/06/2025 8:21 AM CDT) Pathologist [facility] TSH 1.10 0.30 - 4.20 mcIUnit/mL Blood 02/06/2025 8:21 AM CDT 02/06/2025 8:27 AM CDT Rome Ybarra MD LAB BLOOD ORDERABLES Final Res ult Performing Organization Address [facility] Co de Phone Number [facility] One [facility] Department [place] [address] * (ABNORMAL) CBC with auto differential (02/06/2025 8:21 AM CDT) [facility] WBC 6.94 3.80 - 9.90 K/cumm Comment:Testing performed by : [facility], [address] [place] [address] Hgb 13.5 13.0 - 17.5 g/dL CERDUGLAS BJ Comment:Testing performed by : [facility], [address] [place] [address] Hct 40.6 38.9 - 50.3 % CERDUGLAS [facility]J Comment:Testing performed by : [facility], [address] [place] [address] Plt 257 150 - 400 K/cumm CERDUGLAS BJ Comment:Testing performed by : [facility], [address] [place] [address] MPV 8.2 6.8 - 10.4 fL CERDUGLAS [facility] Comment:Testing performed by : [facility], [address] [place] [address] RBC 4.63 4.30 - 5.80 M/cumm CERDUGLAS [facility] Comment:Testing performed by : [facility], [address] [place], [place] [phone] MCV 87.9 81.3 - 96.4 fL [facility] Comment:Testing performed by : [facility], [address] [place], [place] [phone] MCH 29.3 27.1 - 33.3 pg [facility] Comment:Testing performed by : [facility], [address] [place], [place] [phone] MCHC 33.3 32.3 - 35.7 g/dL [facility] Comment:Testing performed by : [facility], [address] [place], [place] [phone] RDW CV 16.4(H) 11.1 - 14.9 % [facility] Comment:Testing performed by : [facility], [address] [place], [place] [phone] NRBC abs 0.00 0.00 - 0.01 K/cumm GALINDO ROTHMAN Comment:Testing performed by : [facility], [address] [place], [place] [phone] Blood 02/06/2025 8:21 AM CDT 02/06/2025 8:27 AM CDT Rome Ybarra MD LAB BLOOD ORDERABLES Final Res ult Performing Organization Address [facility] de Phone Number [facility] [place] [address] * Lactate dehydrogenase (LD) (02/06/2025 8:21 AM CDT) Lactate dehydrogenase (LDH) 234 100 - 250 Units/L Blood 02/06/2025 8:21 AM CDT 02/06/2025 8:27 AM CDT Rome Ybarra MD LAB BLOOD ORDERABLES Final Res ult Performing Organization Address [facility] Co de Phone Number [facility] Department [place] [address] * Comprehensive metabolic panel (02/06/2025 8:21 AM CDT) Sodium 140 135 - 145 mmol/L Potassium, pl 4.7 3.3 - 4.9 mmol/L [facility] Chloride 108 97 - 110 mmol/L [facility] CO2 23 22 - 32 mmol/L [facility] Anion gap 9 2 - 15 mmol/L [facility] BUN 22 6 - 25 mg/dL [facility] Creatinine 1.16 0.80 - 1.30 mg/dL [facility] Glucose 157 70 - 199 mg/dL [facility] Comment: Interpretive Data Fasting glucose >/= 126 [...] 2022. Calcium 9.9 8.5 - 10.3 mg/dL [facility] Bilirubin, total 0.5 0.1 - 1.2 mg/dL [facility] Protein, pl 7.1 6.5 - 8.5 g/dL [facility] Albumin 4.2 3.5 - 5.0 g/dL [facility] Alk phos 98 40 - 130 Units/L [facility] ALT 25 7 - 55 Units/L [facility] AST 22 10 - 50 Units/L [facility] Blood 02/06/2025 8:21 AM CDT 02/06/2025 8:27 AM CDT us Rome Ybarra MD LAB BLOOD ORDERABLES Final Res ult [facility] [place] [address] * eGFR (01/16/2025 8:04 AM CDT) [facility] eGFR 69 >=60 mL/min/1. 73 m2 Comment: [...] ORDERABLES Final Res ult [facility] [place] [address] * Differential, auto (01/16/2025 8:04 AM CDT) [facility] Neutrophil abs 5.54 1.50 - 6.50 K/cumm Comment:Testing performed by : [facility], [address] [place] [phone] Lymphocyte abs 1.98 0.80 - 3.30 K/cumm GALINDO ROTHMAN Comment:Testing performed by : [facility], [address] [place] [phone] Monocyte abs 0.66 0.20 - 0.80 K/cumm GALINDO R[facility]MAN Comment:Testing performed by : [facility], [address] [place] [phone] Eosinophil abs 0.39 0.00 - 0.50 K/cumm [facility] Comment:Testing performed by : [facility], [address] [place] [phone] Basophil abs 0.10 0.00 - 0.10 K/cumm [facility] Comment:Testing performed by : [facility], [address] [place] [phone] Neutrophil pct 63.9 % [facility] Comment: Interpretive Data Percent cell count reference ranges are not reported, since discordance with absolute values may lead to misinterpretation of CBC data. Current Interpretive Data was last revised on 2017. Testing performed by: [facility], [address] [place] [phone] Lymphocyte pct 22.9 % [facility] Comment: Interpretive Data Percent cell count reference ranges are not reported, since discordance with absolute values may lead to misinterpretation of CBC data. Current Interpretive Data was last revised on 2017. Testing performed by: [facility], [address] [place] [phone] Monocyte pct 7.6 % [facility] Comment: Interpretive Data Percent cell count reference ranges are not reported, since discordance with absolute values may lead to misinterpretation of CBC data. Current Interpretive Data was last revised on 2017. Testing performed by: [facility], [address] [place] [phone] Eosinophil pct 4.4 % [facility] Comment: Interpretive Data Percent cell count reference ranges are not reported, since discordance with absolute values may lead to misinterpretation of CBC data. Current Interpretive Data was last revised on 2017. Testing performed by: [facility], [address] [place] [phone] Basophil pct 1.1 % [facility] Comment: Interpretive Data Percent cell count reference ranges are not reported, since discordance with absolute values may lead to misinterpretation of CBC data. Current Interpretive Data was last revised on 2017. Testing performed by: [facility], [address] [place] [phone] Blood 01/16/2025 8:04 AM CDT 01/16/2025 8:18 AM CDT Rome Ybarra MD LAB BLOOD ORDERABLES Final Res ult Performing Organization Address City/[facility]/ZIP Co de Phone Number [facility] One [facility] [place] [address] * Thyroid Function [place] (01/16/2025 8:04 AM CDT) Pathologist [facility] TSH 1.16 0.30 - 4.20 mcIUnit/mL Blood 01/16/2025 8:04 AM CDT 01/16/2025 8:17 AM CDT Rome Ybarra MD LAB BLOOD ORDERABLES Final Res ult Performing Organization Address [facility] de Phone Number [facility] [place] [address] * (ABNORMAL) CBC with auto differential (01/16/2025 8:04 AM CDT) [facility] WBC 8.66 3.80 - 9.90 K/cumm Comment:Testing performed by : [facility], [address] [place] [address] Hgb 13.3 13.0 - 17.5 g/dL [facility] Comment:Testing performed by : [facility], [address] [place] [address] Hct 40.4 38.9 - 50.3 % [facility]ALINDO ROTHMAN Comment:Testing performed by : [facility], [address] [place] [address] Plt 302 150 - 400 K/cumm GALINDO ROTHMAN Comment:Testing performed by : [facility], [address] [place] [address] MPV 8.4 6.8 - 10.4 fL [facility]OTHMAN Comment:Testing performed by : [facility], [address] [place] [address] RBC 4.62 4.30 - 5.80 M/cumm GALINDO ROTHMAN Comment:Testing performed by : [facility], [address] [place], [place] [phone] MCV 87.4 81.3 - 96.4 fL [facility]O ROTHMAN Comment:Testing performed by : [facility], [address] [place], [place] [phone] MCH 28.9 27.1 - 33.3 pg [facility]O ROTHMAN Comment:Testing performed by : [facility], [address] [place], [place] [phone] MCHC 33.0 32.3 - 35.7 g/dL [facility]O [facility]OTHMAN Comment:Testing performed by : [facility], [address] [place] [address] RDW CV 16.2(H) 11.1 - 14.9 % GALINDO ROTHMAN Comment:Testing performed by : [facility], [address] [place] [address] NRBC abs 0.00 0.00 - 0.01 K/cumm [facility] Comment:Testing performed by : [facility], [address] [place] [address] Blood 01/16/2025 8:04 AM CDT 01/16/2025 8:18 AM CDT Rome Ybarra MD LAB BLOOD ORDERABLES Final Res ult [facility] Department of Laboratories [place], [place] [id number] * Lactate dehydrogenase (LD) (01/16/2025 8:04 AM CDT) Lactate dehydrogenase (LDH) 134 100 - 250 Units/L Blood 01/16/2025 8:04 AM CDT 01/16/2025 8:17 AM CDT Rome Ybarra MD LAB BLOOD ORDERABLES Final Res ult [facility] [place] [address] * (ABNORMAL) Comprehensive metabolic panel (01/16/2025 8:04 AM CDT) Sodium 141 135 - 145 mmol/L Potassium, pl 4.5 3.3 - 4.9 mmol/L [facility] Chloride 106 97 - 110 mmol/L [facility] CO2 24 22 - 32 mmol/L [facility] Anion gap 11 2 - 15 mmol/L [facility] BUN 21 6 - 25 mg/dL [facility] Creatinine 1.13 0.80 - 1.30 mg/dL [facility] Glucose 205(H) 70 - 199 mg/dL [facility] Comment: Interpretive Data Fasting glucose >/= 126 [...] 2022. Calcium 9.9 8.5 - 10.3 mg/dL [facility] Bilirubin, total 0.4 0.1 - 1.2 mg/dL [facility] Protein, pl 7.2 6.5 - 8.5 g/dL [facility] Albumin 4.2 3.5 - 5.0 g/dL [facility] Alk phos 101 40 - 130 Units/L [facility] ALT 25 7 - 55 Units/L [facility] AST 23 10 - 50 Units/L [facility] Blood 01/16/2025 8:04 AM CDT 01/16/2025 8:17 AM CDT Rome Ybarra MD LAB BLOOD ORDERABLES Final Res ult [facility] [place] [address] * PET/CT FDG Skull to Thigh (01/13/2025 [...] FDG-PET/CT IMAGING DATE OF STUDY: 01/13/2025 SCANNER: [facility] [employer] (SQ1). This is a high-resolution scanner, which [...] obtained. The study was interpreted on the [employer] workstation. The mean liver SUV (reported for quality control engineering technician purposes) is 3.3. The total scanned area [...] FDG-PET/CT IMAGING DATE OF STUDY: 01/13/2025 SCANNER: [facility] [employer] (SQ1). This is a high-resolution scanner, which [...] obtained. The study was interpreted on the [employer] workstation. The mean liver SUV (reported for quality control engineering technician purposes) is 3.3. The total scanned area [...] by: Marcio Dowd MD Rome Ybarra MD IM PET PROCEDURES Final Resul t from Last 3 Months Insurance MEDICARE ADVANTAGE MEDICARE ADVANTAGE MEDICARE ADVANTAGE Advance Directives For more information, please contact: [phone] * Full Code (Latest Code Status on File) Date Activated Date Inactivated Comments 10/28/2024 9:00 PM 10/29/2024 10:24 PM Care Teams Tutoring Assistant Relationship Specialty Start Date End Date Russ Patton MD [address] [facility] [address] [place] [address] PCP - General Internal Medicine 12/20/21 Toni Montalvo MD [address] [place] [address] Referring Physician Plastic Surgery 06/21/24 Benjy Barron MD [address] [facility] DEPT OTOLARYNGOLOGY, [facility] [address] [place] [address] Referring Physician Otolaryngology 07/07/24 Rome Ybarra MD [address] [facility] DIV IM MEDICAL ONCOLOGY, [facility] [address] [place] [address] Medical Oncologist/Silk Screen Operator Medical Oncology 07/07/24 Jasmin Hernandez PA [address] [place] [id number] Physician Capacity Planning Manager Physician Capacity Planning Manager 07/11/24
== END ==
LOC: ANHLAB 16:10
PROVIDERS: PCP Dermatology; Visit Provider Plastic Surgery
DX: D03.59 Melanoma in situ of other part of trunk (principal); L91.8 Other hypertrophic disorders of the skin
CPT/HCPCS: 88305; 88342